=== PATIENT | male | born 1945 | race Caucasian/White ===

== ENCOUNTER 2024-11-21 14:07 | Inpatient (IN) | payer MEDICARE, BC, SELFPAY ==
[2024-11-21] VITALS (10 sets, daily range): BP systolic 106–140; BP diastolic 55–80; BMI 30.1
--- NOTE | 2024-11-21 10:19 | ED.GENMED ---
History of Present Illness
General
Chief Complaint: Fall
Time Seen by Provider: 11/21/24 09:29
History of Present Illness
History of Present Illness:
79-year-old male with history of A-fib on Eliquis, hypertension presenting after a fall. Patient reports that he rolled out of his bed onto his right side and fell to the ground. Denies prodromal dizziness or lightheadedness. Denies prodromal
chest pain or difficulty breathing. Reports some generalized pain to the right side of his body. Denies significant head injury, however does note some right-sided neck pain. Had difficulty getting up, so ambulance was called. Patient reports
that he does not have any help at home, ambulates with a cane at baseline. Reports some right-sided symptoms appear most consistent with musculoskeletal etiology. Do not suspect any concerning etiology to patient's presenting symptoms. Do not
suspect any spinal fracture in the absence of any direct trauma, and no midline spinal tenderness. No fever, systemic symptoms, or midline tenderness, without concern for spinal abscess or infection. No red flag such as bowel or bladder
incontinence, focal weakness, or any sensory deficits on exam, without present concern for spinal compression.. Denies numbness or tingling to his extremities. Denies any abdominal pain. Denies additional acute medical complaints.
Past History
Past History
ED Past Medical History: Arrthythmia (PVCs and ventricular arrhythmias), CAD, COPD, CVA, GERD, HTN, NC, Other (gout, urinary incontinence) and Other (sleep apnea, obesity, glaucoma, vitamin B12 deficiency)
ED Past Surgical History: Cardiac (coronary bypass grafting year 1999, drug-eluting stent 2009), Cholecystectomy, Orthopedic (bilateral knee replacements) and Tonsilectomy
Social History
Tobacco: Non-smoker
Alcohol: None
Personal:
Employment: Retired
Family History
Family History: CAD; Negative Diabetes or Hypertension
Phy Exam
Physical Exam
Physical Exam:
General: Well-appearing, no clinical signs of dehydration, nontoxic and in no acute distress
HEENT: protecting airway, no midline tenderness. Mild tenderness to the right lateral cervical musculature
Head: atraumatic
Neck: appears supple
CV: Normal heart rate, regular rhythm
Resp: No accessory muscle use, no increased work of breathing
Abd: Soft and non-distended, no tenderness to palpation
Extremities: No deformities, no swelling, no erythema. Mild generalized tenderness to the right thoracic back and right lumbar back. No midline tenderness.
Neuro: alert, no focal neurologic deficit
: deferred
Rectal: deferred
Psych: Normal affect
Skin: Intact
Course
Orders/Labs/Results
Orders:
Orders
11/21/24 10:12
Case Management Consult ONCE
Case Management Consult: Discharge Planning
11/21/24 10:13
CT Cervical Spine W/o Iv Contr Urgent
Comment:
Reason For Exam: fall, right sided pain
Acetaminophen [Tylenol] 1,000 mg PO NOW STA
Ribs, Right 3 View W/PA Chest [CR Ribs-right 3 Vw W/pa Chest*] Urgent
Comment:
Reason For Exam: fall
11/21/24 10:15
CT Head W/o Iv Contrast Urgent
Comment:
Reason For Exam: fall, on eliquis
11/21/24 11:11
CT Chest W/o Iv Contrast Urgent
Comment:
Reason For Exam: R-clavicle fx, small apical pneumo
11/21/24 11:27
Electrocardiogram (*1) Urgent
Reason for Study: Other
Other Reason for Exam: trauma
Cardiac Monitoring- Treatment ONCE
EKG- Treatment ONCE
11/21/24 11:29
Type+Screen Urgent
Complete Blood Count/With Diff Urgent
Comprehensive Metabolic Panel Urgent
NT-proBNP Urgent
Prothrombin Time Urgent
11/21/24 12:01
ABO2 Urgent
BBK Wristband Number:
Associate notified that ABO2 has been ordered: SHAUN
Date: 11/21/24
Time: 11:43
B And B Gang Worker ID: [id number]
11/21/24 12:41
Furosemide [Lasix] 40 mg IV NOW STA
11/21/24 13:22
Urinalysis Reflex To Culture Urgent
Date Specimen was Collected: 11/21/24
Time Specimen was Collected: 13:20
Urine Microscopic Reflex Cult Urgent
Urine Culture Urgent
CASSIUS Source: U
Specimen Description:
Date Specimen was Collected: 11/21/24
Time Specimen was Collected: 13:20
11/21/24 13:34
PULMONARY CONSULT Routine
Consulting Provider: Roland Arauz
Was physician already notified: Yes
Reason for consult: mod right plueral effusion, right pneumo 5-10%
11/21/24 13:36
Admit/Transfer Patient As Directed
Co-Sign Provider:
Level of Care: Inpatient admission
Assign to:: Telemetry
Physician / Group: flex mortensen
Diagnosis: mech fall R cavicle fx, acute chf, mod pleural effusion,pneumothorax
Reason for Telemetry: Acute Heart Failure
Date to Stop Telemetry: 11/24/24
Time to Stop Telemetry: 11:00
Reason for Hospitalization: mech fall R cavicle fx, acute chf, mod pleural effusion,pneumothorax
Expected length of stay greater than two midnights?: Yes
ELOS- Estimated Length of Stay in days: 4
I certify the patient meets the requirements for IP care: Yes
Code Status As Directed
Resuscitation Status: Full Code
11/21/24 13:41
PRN Pain Medication Management As Directed
May give lesser potent ordered pain med per pt: Yes
preference::
Protocol:: Medication orders for pain may be administered in a
manner that supports deferring to patient preference
when the pt is:
- Requesting an ordered lesser potent pain medication.
Least to most potent pain medications are defined
as: acetaminophen < NSAID < tramadol < opioids
(morphine, oxycodone, hydromorphone).
- Requesting a lesser dose of the same medication IF
ORDERED.
- Requesting a less intrusive route of administration
if both routes are prescribed by the provider (PO <
IV).
11/21/24 13:44
CARDIOLOGY CONSULT Routine
Consulting Provider: Kenneth Weeks
Was physician already notified: Yes
Reason for consult: chf
11/21/24 Dinner
Cholesterol Lowering
At Your Request: Full Participation
Does patient need a safe tray?: No
Cholesterol Lowering: Sodium, 2 Gram
11/21/24 15:24
Acetaminophen [Tylenol] 650 mg PO Q4HPRN PRN
11/21/24 15:24
VTE Contraindication Routine
VTE Mechanical Device Contraindication: Medical Contraindication
Pharmocologic Contraindication: Medical Contraindication
Comment: pt on eliquis
Activity As Directed
Activity Level: As Tolerated
Ice Application [Cold Application] As Directed
Location: right clavicle
Frequency: Intermittent q2h
Duration of Application: No longer than 20 minutes
Method of Delivery: Ice packs
Intake/ Output As Directed
Frequency: Per unit guidelines
Vital Signs As Directed
Frequency: Per unit guidelines
Weight As Directed
Frequency: Daily
O2 Therapy [RESP] Routine
Nasal Cannula Liter Flow: 2 LPM
Titrate/Wean O2 to maintain O2 sat greater than (%): 92
Pulse Ox/spot Check [RESP] Routine
Quantity: 1
Pt Eval And Treat Routine
Activity Level: With Assistance
11/21/24 20:00
Apixaban [Eliquis] 5 mg PO BID
Memantine HCl [Namenda] 5 mg PO BID
11/22/24 06:00
Echo 2D MMode Color/Doppler IN AM
Reason for Study: chf
Complete Blood Count/With Diff IN AM
Comprehensive Metabolic Panel IN AM
Chest [CR Chest - 2 Views ] IN AM
Comment:
Reason For Exam: pneumothorax eval
11/22/24 08:00
Amlodipine [Norvasc] 10 mg PO DAILY
Atenolol [Tenormin] 25 mg PO DAILY
Clopidogrel Bisulfate [Plavix] 75 mg PO DAILY
Cyanocobalamin [Vitamin B-12] 1,000 mcg PO DAILY
Furosemide [Lasix] 40 mg IV BID AT 0800,1600
11/23/24 06:00
Complete Blood Count/With Diff IN AM
Comprehensive Metabolic Panel IN AM
11/24/24 06:00
Complete Blood Count/With Diff IN AM
Comprehensive Metabolic Panel IN AM
11/24/24 11:00
DC Protocol for Telemetry ONCE
Abnormal Lab Results
11/21/24 11/21/24
11:29 13:22
Absolute Lymphs (auto) 0.9 L 10^3/uL
(1.2-3.4)
Absolute Monos (auto) 0.8 H 10^3/uL
(0.1-0.6)
Lymphocytes % 13.2 L %
(20.5-51.1)
Monocytes % 11.4 H %
(1.7-9.3)
PT 17.4 H Sec
(11.4-14.6)
Creatinine 0.6 L mg/dL
(0.7-1.3)
Glucose 112 H mg/dl
(70-99)
Total Bilirubin 2.1 H mg/dl
(0.2-1.3)
Alkaline Phosphatase 155 H U/L
(38-126)
Albumin 3.4 L g/dl
(3.5-5.0)
Ur Occult Blood Reflex 1+ A
(Negative)
Urine Nitrite (Reflex) Positive A
(Negative)
Urine Urobilinogen 2+ A
(Neg - 1+)
Leukocyte Esterase Rfl 3+ A
(Negative)
Urine RBC 3-6 A /HPF
(0-2)
Urine WBC (Reflex) 30-40 A /HPF
(0-5)
Urine Bacteria (Reflex) Many A
(Negative)
Urine Albumin (Reflex) 2+ A
(Neg - Trace)
11/21/24 11:29
11/21/24 11:29
Vital Signs
Initial and Last Documented VS:
Initial Vital Signs
BP Pulse Ox
115/57 92
11/21/24 09:19 11/21/24 09:19
Last Documented Vital Signs
Temp Pulse Resp BP Pulse Ox
98.6 F 68 25 113/69 94
11/21/24 09:23 11/21/24 15:00 11/21/24 15:00 11/21/24 15:00 11/21/24 15:00
MDM/Problems Addressed
MDM/Problems Addressed:
79-year-old male with history of A-fib on [facility] presenting after a fall out of bed. Vital signs on arrival are normal.
On exam, patient resting comfortably, no acute distress. No significant signs of trauma. Does note some mild right-sided lateral neck pain. Suspected cervical strain. Given anticoagulation, unwitnessed fall, will obtain CT brain and CT neck.
Patient's main complaints are right-sided back pain, thoracic and lumbar. No midline tenderness without concern for fracture or malalignment. Lungs are clear to auscultation, without concern for pneumothorax. Plan for rib series x-ray. Tylenol
administered for pain. Chronic swelling to the lower extremities without any deformity. No tenderness to the right hip. Small abrasion to the right shoulder, with no tenderness, range of motion intact. Patient notes mobility issues at baseline.
Given his pain, suspect issues with ambulation and disposition. Will consult with PT and case management
11:10 - Patient's CT of the neck does not show any cervical fracture, however does note a right mid clavicular fracture with subsequent small apical pneumothorax. Rib series x-ray is difficult to see extent of pneumo, appears small. Will proceed
with CT chest imaging. Patient placed on supplemental O2
12:30 -CT shows small apical pneumothorax without additional signs of trauma, with the exception of right clavicular fracture. No indication for chest tube, no hemodynamic instability. Additionally there is also bilateral pleural effusions.
Patient does have significant bilateral lower extremity edema, which she notes is chronic and is on a water pill. Suspect a component of acute on chronic CHF. Plan for admission.
*Pulse Oximetry
SaO2: 94
Oxygen Mode of Delivery: Room air
Patient hypoxic: no
*Critical Care Note
Total Time (30-74mins, 75-104mins- exclusive of procedures): Not Applicable
ED Attending Note
-
Portions of this chart may have been created with voice recognition software.� Occasional wrong word or��sound alike� substitutions may have occurred due to the inherent limitations of voice recognition software.
Discharge Plan
Departure
Patient Disposition: Admit
Date of Disposition: 11/21/24
Time of Disposition: 12:42
Presentation/result/management discussed w/ accepting MD/DO: Hospitalist
Patient with high blood pressure during this ER visit?: No
Condition: Fair
Discharge Problem:
Congestive heart failure (CHF), Closed fracture of right clavicle, Pneumothorax on right
Interventions
Interventions:
*Risk Screen - Suicide Last Done: 11/21/24 09:24
*General Assessment Last Done: 11/21/24 09:24
*Neglect/Abuse Screening Last Done: 11/21/24 09:31
*ED- Fall Risk Assessment Last Done: 11/21/24 09:30
*ED COVID-19 Vaccine History Last Done: 11/21/24 09:31
*Nursing Disposition Last Done: 11/21/24 15:27
ED-Musculoskeletal Assessment Last Done: 11/21/24 09:33
ED- Neurological Assessment Last Done: 11/21/24 09:33
ED-Skin Assessment Last Done: 11/21/24 11:08
Discharge Date and Time
Discharge Date/Time: 11/21/24 15:28
[2024-11-21] MEDS: TYLENOL 1000 MG PO (10:20)
--- NOTE | 2024-11-21 11:13 | CM ---
Case Management Consult cancelled; per ED Physician patient will transfer to [facility]uma [facility] for pneumothorax
[2024-11-21 11:48] LABS: Hematocrit 43.4 % (39.0-52.0); Hemoglobin 14.4 g/dL (13.0-18.0); Mean Corp Hgb Conc. 33.2 g/dL (33.0-37.0); Mean Corpuscular Volume 92.1 fL (80.0-94.0); Nucleated Red Blood Cells % 0 % (-); Platelet Count 148 10^3/uL (130-400); Red Cell Dist. Width 11.8 % (11.5-14.5)
[2024-11-21 11:54] LABS: INR 1.37; PT 17.4 Sec (11.4-14.6)
[2024-11-21 11:58] LABS: ALT (SGPT) 16 U/L (0-50); AST (SGOT) 24 U/L (17-59); Albumin 3.4 g/dl (3.5-5.0); Alkaline Phosphatase 155 U/L (38-126); Blood Urea Nitrogen 15 mg/dl (9-20); Calcium 10.0 mg/dl (8.4-10.2); Carbon Dioxide 28 mmol/L (22-30); Chloride 103 mmol/L (98-107); Estimated Creatinine Clearance 108 ml/min; Glucose 112 mg/dl (70-99); Potassium 3.6 mmol/L (3.5-5.1); Sodium 136 mmol/L (135-145); Total Protein 6.3 g/dl (6.3-8.2); eGFR > 60.00
[2024-11-21] MEDS: LASIX 40 MG IV (12:55)
--- NOTE | 2024-11-21 13:03 | HPS.HSE ---
Family Physician
-
Family Physician: Kuldip Liu MD
Chief Complaint
-
Fall right clavicular pain
History of Present Illness
79-year-old male who reportedly rolled out of his bed onto his right side fell to the ground and is complaining of right sided neck pain. He denies LOC. He reports he was up at 5 AM went to the bathroom took his a.m. medications then went back to
bed he then fell out later this morning. He has chronic lower extremity edema on exam for which he takes Lasix. He had a CT chest showing small apical pneumothorax and bilateral pleural effusions. Chest CT also showing right clavicular fracture
nondisplaced. The patient denies headache, dizziness fever, chills, chest pain, palpitations, cough, shortness breath, abdominal pain, nausea, vomiting, diarrhea, urinary symptoms.
Patient has past medical history of mild memory impairment, PVCs, A-fib new onset December 2022, CAD/GA, status post CABG 1999, drug-eluting stent 2009, COPD, CVA�pontine HTN, GERD, gout, urinary incontinence, sleep apnea, obesity, glaucoma,
vitamin B12 deficiency, memory impairment�mild, chronic peripheral edema
Medical History
Past Medical History
Past Medical History: Reports Other
Additional Past Medical History:
mild memory impairment
PVCs
A-fib new onset December 2022
CAD/GA, status post CABG 1999,
drug-eluting stent 2009
Chronic heart failure
COPD/asbestosis
CVA�pontine
HTN
GERD
gout
urinary incontinence
sleep apnea
Class I obesity
glaucoma,
vitamin B12 deficiency
chronic peripheral edema
Past Surgical History: Reports Other
Additional Past Surgical History:
CABG x 3 vessel 1999
Bilateral knee replacement 2011
Cholecystectomy
Tonsillectomy
Mohs skin cancer removal knee
Social History
Tobacco: Former Smoker (States smokes 16)
Alcohol: None
Drug: None
Personal: Single
Living: With Family (Lives with daughter)
Employment: Retired
Family History
Family History: Other (Sister history of breast cancer still living with mother history of unknown type of cancer , father history of alcohol abuse [place] age 85)
Allergies / Home Medications
Allergies reflects when Allergies were last updated in [employer].
Home Medications with original date entered in [employer]
Allergy/Medication List:
Allergies
Allergy/AdvReac Type Severity Reaction Status Date / Time
adhesive tape Allergy Rash Verified 01/26/22 11:48
meperidine (From Demerol) Allergy Hallucinati Verified 01/26/22 11:48
on
walnut Allergy Swelling Verified 01/26/22 11:48
Home Medications
amlodipine 10 mg tablet 10 mg PO DAILY #30 tabs 03/30/21
cyanocobalamin (vitamin B-12) 1,000 mcg tablet 1,000 mcg PO DAILY 03/30/21
atenolol 25 mg tablet 25 mg PO DAILY Heart Failure 01/18/22
evolocumab 140 mg/mL subcutaneous pen injector (Repatha SureClick) 140 mg SC Q2W High Cholesterol 12/16/22
apixaban 5 mg tablet (Eliquis) 5 mg PO BID #60 tabs 12/18/22
clopidogrel 75 mg tablet 75 mg PO DAILY 11/21/24
furosemide 40 mg tablet 40 mg PO DAILY 11/21/24
memantine 5 mg tablet 5 mg PO BID 11/21/24
potassium chloride 10 mEq capsule,extended release 10 meq PO DAILY 11/21/24
Review of Systems
-
History Source: Patient
A 12 point ROS was completed and negative except as noted: Yes
Constitutional: Denies Fever or Chills
EENT: Denies Sore Throat or Runny Nose
Respiratory: Reports Trouble Breathing; Denies Cough
Cardiac: Denies Chest Pain, Diaphoresis, Palpitations or Syncope
Abdomen/GI: Denies Abdominal Pain, Nausea, Vomiting, Diarrhea, Constipated, Bloody Stools or Black Stools
: Denies Dysuria, Frequency, Flank Pain, Incontinence or Difficulty Voiding
Musculoskeletal: Reports Edema (Chronic +2 nonpitting soft bilateral legs); Denies Joint Pain
Skin: Reports Other (Tenderness right clavicle with limited range of motion due to clavicular fracture); Denies Itching or Rash
Neurological: Denies Dizzy or Headache
Endocrine: Reports No Symptoms
Hematologic/Lymphatic: Reports No Symptoms
Psych: Reports Calm
Physical Exam
Vital Signs
Vital Signs
Temp Pulse Resp BP Pulse Ox
98.6 F 77 19 119/76 95
11/21/24 09:23 11/21/24 12:55 11/21/24 12:00 11/21/24 12:55 11/21/24 12:00
Physical Exam
General: No Pain, Fever or Chills
HEENT: NormoCephalic, Anicteric, Moist mucous membranes, Atraumatic, PERRLA, [place] Conjunctivae, No Ptosis and Oxygen (2 L nasal cannula)
Respiratory: Other (Diminished breath sounds right lung,Tenderness right clavicle with limited range of motion due to clavicular fracture); No Wheezes or Rales
Cardiac: S1/S2, Regular Rhythm and Peripheral Edema
Breast: Deferred by me
GI: Soft, Non Tender, Non Distended, Normal Bowel Sounds and No Hepatosplenomegaly
Rectal: Deferred by Provider
Genito-urinary: Deferred by me
Musculoskeletal: No Clubbing and No Cyanosis; No Edema, Left Upper Extremity or Edema, Right Upper Extremity
Skin: Warm and Dry; No Rash or Jaundice
Neuro: AO x 3 (Slight forgetfulness due to memory impairment), Nonfocal/grossly intact, Cranial Nerves Intact, No Sensory Deficits and Other (Limited range of motion right arm due to clavicular fracture); No Slurred Speech, Facial Droop, Tremors or
Sedated
Psych: Calm
Laboratory Results
-
11/21/24 11:29
11/21/24 11:29
Laboratory Results
PT 17.4 Sec (11.4-14.6) H 11/21/24 11:29
INR 1.37 11/21/24 11:29
Total Bilirubin 2.1 mg/dl (0.2-1.3) H 11/21/24 11:29
AST 24 U/L (17-59) 11/21/24 11:29
ALT 16 U/L (0-50) 11/21/24 11:29
Alkaline Phosphatase 155 U/L (38-126) H 11/21/24 11:29
Impression/Plan
-
Impression/plan:
Admit to TELE
#Mechanical fall with neck strain/RIGHT medial clavicular fracture nondisplaced
- Tylenol as needed
- Sling, ice
- PT consult
#Moderate right-sided pleural effusion/small�moderate left pleural effusion secondary to ACUTE on CHRONIC CHF
#Chronic peripheral edema
92% RA, 95% 2 L nasal cannula
BNP 2019
- IV Lasix 40 mg given in ER continue ,IV Lasix 40 mg twice daily starting tomorrow
-If no improvement would consider IR for Thora
- Consult [facility]ology
#Small right-sided pneumothorax 5 to 10% -no shift
- Will monitor patient
- Maintain O2 support
- Check CXR in a.m.
- Consult home
#Memory impairment
�mil continue Namenda 5 mg twice daily
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
History of 9 mm left pontine infarct, chronic diminished flow V3 V4 segments distal left vertebral artery December 2022
-No symptoms currently
-Continue Plavix , Eliquis last dose was this morning 11/21/2024 at 5:30 AM
-
#New onset A-fib
History PVCs
- Follows with [facility]ology
-Continue atenolol 25 mg daily, Eliquis 5 mg twice daily
2D echo 01/25/2024: EF 55-60%, mildly dilated moderate hypokinetic right ventricle, mild RV S pressure 41 mmHg, moderate biatrial enlargement
#HTN�benign
Continue amlodipine 10 mg daily
#CAD status post CABG
-On aspirin and Plavix, atenolol 25 mg daily
#History of PVCs
#Essential hypertension
-Continue amlodipine, atenolol
#Hyperlipidemia
- Patient on Repatha 140 mg SQ every 2 weeks
#COPD�no acute exacerbation
- Patient denies history of smoking other than his teen
#GERD
- No reported meds
Gout
- No reported meds
Sleep apnea
Class I obesity�BMI 30
Glaucoma
- No reported eyedrops
B12 deficiency
-Continue B12
Anxiety/depression
- No meds listed
Osteoarthritis
DVT prophylaxis
Continue Eliquis
Full code
--- NOTE | 2024-11-21 13:25 | W.PN.UPDATE ---
Update Note
Progress Note Update
This is an addendum to H&P written by STOCK FITTER Iram Zuñiga
I saw and examined the patient.
The STOCK FITTER's note was reviewed and I agree with the note.
Comment:
Mr. Gibson Horton is a 79 yo man with hx atrial fibrillation, TIA, essential HTN, HLD, COPD, PENNIE, GERD, obesity presents after falling out of bed this morning onto his right side.
Triage VS: T 98.6, P 76, BP 115/57, SpO2 92%
On exam patient is mildly tachypneic, conversant. JVP seen; 2 + pitting edema b/l LE
LABS: WBC 6.7, Hg 14.1, PLT 148, Na 136, K+ 3.6, Cr 0.6, Glucose 112, T. Bili 2.1, AST 24, ALT 16, Alk Phos 155, BNP [address]
IMPRESSION: There is no evidence for acute fracture or dislocation involving the cervical spine.
There is suggestion of a small nondisplaced fracture involving the medial right clavicle.
Small right apical pneumothorax is present. There is also suggestion of right pleural effusion posteriorly within the visualized upper chest.
Ribs with Chest X-Ray
IMPRESSION: There is a small right apical pneumothorax, estimated volume 5-10%. No evidence for mediastinal shift.
Subtle deformity of the right anterolateral seventh rib, appearance most suggestive of old fracture, but acute fracture also possible. No radiographic evidence for acute posterior rib fracture.
Cardiomegaly with small bilateral pleural effusions. Suggestion of increased interstitial markings, best seen on the radiographs, suggestive of mild interstitial edema pattern.
HEAD CT
IMPRESSION:
No evidence of acute intracranial abnormality.
CHEST CT
IMPRESSION:
Small right-sided pneumothorax, estimated volume of 5-10%. No evidence for mediastinal shift.
Moderate right pleural effusion with small to moderate left pleural effusion. Adjacent compressive atelectasis within the posterior lungs.
Cardiomegaly. On CT evaluation, no convincing evidence for interstitial pulmonary edema pattern.
Fracture involving the medial right clavicle, nondisplaced. There is no evidence for sternoclavicular joint dislocation.
Cystic mass within the left upper abdomen, inferior to the spleen and at the posterior margin of the left kidney. This is likely a large left kidney cyst, with a large left kidney cyst identified on previous renal ultrasound of September 16, 2021. This
presumed the left kidney cyst is incompletely included on the [id number] of this exam.
Not mentioned above, there is also an incompletely visualized cyst arising in the upper pole of the right kidney.
Heart Failure preserved EF, Acute Exacerbation
Moderate Right pleural effusion
-admit to telemetry
-Lasix 40mg IV x 1 now, continue BID starting tomorrow
-strict I/O, daily weights
-TTE
-Cardiology consult
-monitor pleural effusion with CXR, consider thoracentesis if does not improve with diuresis
Small right apical pneumothorax, 5-10%
-continuous oxygen
-repeat CXR tomorrow AM
-Pulmonary consult
Medial right clavicular fracture, nondisplaced
-will order sling, patient should wear while healing for 6 weeks
-outpatient follow up
-PT/OT
Essential HTN
-SALES OFFICE ADMINISTRATOR Amlodipine
Hx Atrial Fibrillation
-continue SALES OFFICE ADMINISTRATOR Atenolol
-SALES OFFICE ADMINISTRATOR Eliquis
Hx CVA
-SALES OFFICE ADMINISTRATOR Plavix
Hx CAD s/p CABG 1999, PCI 2009
-SALES OFFICE ADMINISTRATOR Plavix
DVT PPx SALES OFFICE ADMINISTRATOR Eliquis
FULL CODE
76 minutes spent on patient care
[2024-11-21 13:48] LABS: Urine Character Slightly Cloudy (Clear)
[2024-11-21 15:10] LABS: Urine Squamous Cell 16-20 /LPF (Few)
[2024-11-21 15:12] LABS: Urine White Cell 30-40 /HPF (0-5)
--- NOTE | 2024-11-21 15:40 | PTCARENOTE ---
Received pt from ED via stretcher. Pt pulled over to bed with assist x3. AAOx3, forgetful. pt c/o right sided rib pain, able to tolerate. auto bumper mechanic placed. Assessed and oriented to room. Pt verbalized understanding of call elena. Call elena
within close reach. Will cont to monitor.
--- NOTE | 2024-11-21 15:56 | CON.CAR ---
Addendum entered and electronically signed by Kenneth Weeks DO 11/21/24 20:47:
I saw and examined the patient.
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
Comment:
Plan:
HPI: Patient presented with fall out of bed and found to have a right clavicle fracture as well as right apical pneumothorax and bilateral pleural effusions, pBNP elevated at 2019.
IV lasix diuresis
Consider thoracentesis pending pleural fluid repsonse to diuresis
Management of small right apical pneumothorax per primary service, repeat chest x-ray in a.m. for reassessment
-Pain management of right clavicle fracture
Check echo to reeval EF
Wean supplemental oxygen as able
Wt is down from May 2024
Defer workup to primary service
Not felt to be candidate for SGLT2 inhibitor given issues with urinary incontinence
Remains rate controlled AFib on Atenolol, Eliquis
May consider stopping Plavix as last stent 2009
He is considering pursuing alternative living arrangements at time of d/c
Original Note:
Consultation
Consultation Request
Date/Time Consultation Performed: 11/21/24
Requesting Provider: Dr. Schultz
Performing Provider: Reena Yuan PA-C for Dr. Weeks
Reason for Consultation: CHF
Medical History
-
Chief Complaint: fall
History of Present Illness:
Patient is an 79-year-old male with past medical history of CAD status post CABG 1999, RON to unknown vessel 2009, hypertension, hyperlipidemia, chronic heart failure with preserved EF, persistent atrial fibrillation on chronic Eliquis,
anxiety/depression, PENNIE on CPAP, history of statin intolerance maintained on chronic Repatha, CVA 05/2019, suspected prior asbestos exposure who presents to [facility] for evaluation after a fall at home. He reports he fell out of his bed
this morning, and could not get up. He lives with his sister, but she did not witness the fall. 911 was called and he was brought to the emergency room. He was found to have evidence of a right clavicle fracture with a small right apical
pneumothorax and bilateral pleural effusions. proBNP elevated at 1999. Cardiology consulted for assistance with heart failure management. Patient reports dry weight of 210 pounds, however was listed as 250 pounds at office visit 06/01/2024. He is
maintained chronically on Lasix 40 mg daily.
PMH:
Chronic heart failure with preserved EF
Persistent atrial fibrillation
Chronic anticoagulation with Eliquis
History of CVA 05/2019
CAD status post CABG 1999 at [facility], RON to unknown vessel 2009
Hypertension
Hyperlipidemia
Anxiety/depression
PENNIE on CPAP
History of statin intolerance maintained on chronic Repatha
Suspected prior asbestos exposure
Urinary incontinence, history of TURP 2021
Bilateral knee replacements
Past Medical History
Past Medical History: Other (in HPI)
Social History
Tobacco: Non-Smoker
Living: With Family (sister)
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
Allergies / Home Medications
Allergy/AdvReac Type Severity Reaction Status Date / Time
adhesive tape Allergy Rash Verified 01/26/22 11:48
meperidine (From Demerol) Allergy Hallucinati Verified 01/26/22 11:48
on
walnut Allergy Swelling Verified 01/26/22 11:48
�Medication �Instructions �Recorded �Confirmed �Type
amlodipine 10 mg tablet 10 mg PO DAILY #30 tabs 03/30/21 11/21/24 Rx
cyanocobalamin (vitamin B-12) 1,000 mcg PO DAILY 03/30/21 11/21/24 Rx
1,000 mcg tablet
atenolol 25 mg tablet 25 mg PO DAILY Heart Failure 01/18/22 11/21/24 History
evolocumab 140 mg/mL subcutaneous 140 mg SC Q2W High Cholesterol 12/16/22 11/21/24 History
pen injector (Repatha SureClick)
apixaban 5 mg tablet (Eliquis) 5 mg PO BID #60 tabs 12/18/22 11/21/24 Rx
clopidogrel 75 mg tablet 75 mg PO DAILY 11/21/24 11/21/24 History
furosemide 40 mg tablet 40 mg PO DAILY 11/21/24 11/21/24 History
memantine 5 mg tablet 5 mg PO BID 11/21/24 11/21/24 History
potassium chloride 10 mEq 10 meq PO DAILY 11/21/24 11/21/24 History
capsule,extended release
Review of Systems
-
History Source: Patient
All other systems: Negative unless noted
Physical Exam
Vital Signs
Temp Pulse Resp BP Pulse Ox
98.6 F 68 25 113/69 94
11/21/24 09:23 11/21/24 15:00 11/21/24 15:00 11/21/24 15:00 11/21/24 15:00
Lab Results
11/21/24 11:29
11/21/24 11:29
Cpa-D-Kulsbhlntqa Pept 2020 pg/ml 11/21/24 11:29
Physical Exam
General: No Apparent Distress, Comfortable and Other (on supp O2)
HEENT: Normocephalic, Anicteric and Moist Mucous Membranes
Respiratory: Other (decreased BS B/L bases)
Cardiac: S1/S2 and Irregular Rhythm
GI: Soft, Non Tender, Non Distended and Normal Bowel Sounds
Musculoskeletal: No Clubbing, No Cyanosis and Edema (trace of B/L LE)
Skin: Warm and Dry
Neuro: AO x 3
Impression / Plan
-
Primary Doughnut Icer Machine: Dr. Maynard
Assessment:
Presentation with fall
R clavicle fracture
R apical PTX
B/L pleural effusions
Suspected acute on chronic HFpEF
Persistent atrial fibrillation
Chronic anticoagulation with Eliquis
History of CVA 2022
CAD status post CABG 1999 at [facility], RON to unknown vessel 2009
Hypertension
Hyperlipidemia
Anxiety/depression
PENNIE on CPAP
History of statin intolerance maintained on chronic Repatha
Suspected prior asbestos exposure
Urinary incontinence, history of TURP 2021
Bilateral knee replacements
Memory impairment, on memantine
ECHO 01/25/24: EF 55 to 60%, RV mildly dilated and moderately hypokinetic, mild increase in RV systolic pressure 41 mmHg, moderate biatrial enlargement
Plan:
- Patient presented with fall out of bed and found to have a right clavicle fracture as well as right apical pneumothorax and bilateral pleural effusions
- proBNP elevated at 2020. Will diurese with IV Lasix, is on 40 mg p.o. daily as an outpatient. If not improving, would consider for thoracentesis to further evaluate pleural fluid
- Management of small right apical pneumothorax per primary service, will need repeat chest x-ray in a.m. for reassessment
- Pain management of right clavicle fracture
- Last echo from 01/2024, will repeat
-Wean supplemental oxygen as able
- By comparison of weight of 250 pounds in office 06/01/2024, weight if accurate today now 203 pounds. Defer workup to primary service
- Not felt to be candidate for SGLT2 inhibitor given issues with urinary incontinence
- EKG with rate controlled atrial fibrillation. Continue outpatient atenolol, Eliquis
- Also on Plavix. Last noted stent was in 2009
- Continue outpatient amlodipine
Data Reviewed
-
EKG: Tracing Personally Visualized and interpreted
Radiology: Report Reviewed by me
Medical Tests (Nuc Med, Echo etc): Report Reviewed by me
Labs: Labs Reviewed by me
Old Records: Reviewed
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
--- NOTE | 2024-11-21 18:15 | PTCARENOTE ---
Information in regards to patient complaint provided to [facility].
[2024-11-21] MEDS: DESENEX/MITRAZOL/ZEASORB 1 APPLIC TOPICAL (19:38)
[2024-11-21] MEDS: NAMENDA 5 MG PO (19:38)
[2024-11-21] MEDS: ELIQUIS 5 MG PO (19:39)
[2024-11-22 02:41] VITALS: BP 107/72
[2024-11-22 06:00] VITALS: BMI 30.8
--- NOTE | 2024-11-22 07:42 | W.PN.HOSP.TC ---
Today's Communication/Plan
-
Follow-up echo and CXR
Follow-up s/p IR right thoracentesis
Assessment / Plan
Assessment / Plan
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
and chronic peripheral edema on Lasix who presented to the ED on 11/21 after a fall. In the ED, cervical spine CT, chest CT, ribs with CXR altogether revealed right medial clavicle fracture with a small right apical pneumothorax and bilateral
pleural effusions. Labs significant for proBNP 1999. Cardiology was consulted and Gibson was admitted to telemetry for further management of his fracture and heart failure.
CT brain: No evidence of acute intracranial abnormality.
CT C-spine: No evidence for acute fracture or dislocation involving the cervical spine. There is suggestion of a small nondisplaced fracture involving the medial right clavicle. Small right apical pneumothorax is present. There is also suggestion of
right pleural effusion posteriorly within the visualized upper chest.
CT chest: Small R-sided PTX, estimated volume of 5-10%. No evidence for mediastinal shift. Moderate right pleural effusion with small to moderate left pleural effusion. Adjacent compressive atelectasis within the posterior lungs. Cardiomegaly. On CT
evaluation, no convincing evidence for interstitial pulmonary edema pattern. Fracture involving the medial right clavicle, nondisplaced. There is no evidence for sternoclavicular joint dislocation. Cystic mass within the left upper abdomen, inferior
to the spleen and at the posterior margin of the left kidney. This is likely a large left kidney cyst, with a large left kidney cyst identified on previous renal ultrasound of September 16, 2021. This presumed the left kidney cyst is incompletely
included on the aljyk-ww-gaae of this exam. Not mentioned above, there is also an incompletely visualized cyst arising in the upper pole of the right kidney.
#Mechanical fall
#Right medial clavicular fracture, nondisplaced
#Small right-sided pneumothorax
#Bilateral pleural effusions
- Pulm consulted, appreciate recs:
--C/F hemothorax as he is on Eliquis
--Recommending IR right thoracentesis to rule out hemothorax and avoid fibrothorax
--Consulted IR for thoracentesis. Patient will get this 11/22 afternoon.
- Follow-up repeat chest x-ray
- Tylenol as needed
- Sling, ice, lidocaine patches, wean oxygen as tolerated
- PT/OT consulted
#HFpEF, possible acute exacerbation
- Cardiology consulted, appreciate recs:
--Continue diuresis with IV Lasix: If patient is not improving, would consider thoracentesis for evaluation of pleural fluid
--Last echo 01/2024, follow-up repeat echo
--Follow-up repeat chest x-ray 11/22
--Not an SGLT2 inhibitor candidate ISO urinary incontinence
--Weight is down from 2024, rec to primary service for further workup
--Wean oxygen as tolerated
- S/p Lasix 40 mg IV x 1 in ED: Continue IV Lasix 40 mg twice daily at 8 AM, 4 PM
#History of memory impairment
- Continue home memantine 5 mg p.o. twice daily
#Pontine CVA
Occurred in December 2022, 9 mm left pontine infarct, chronic diminished flow V3 V4 segments distal left vertebral artery.
- Continue clopidogrel 75 mg and apixaban 5 mg p.o. twice daily
#A-fib
#CAD s/p CABG
- Follows with [facility] cardiology
- Continue atenolol 25 mg daily and Eliquis 5 mg twice daily
- Follow-up repeat echo
#Essential hypertension
- Continue amlodipine 10 mg daily
Hyperlipidemia
- Continue Repatha 140 mg every 2 weeks
DVT prophylaxis: Eliquis
CODE STATUS: Full code
Anticipated Discharge: 24 - 48 hours (Pending clinical improvement and workup)
Subjective/Interval History
-
Date of Service: November 22, 2024
-This morning, he is sitting up in bed with NC (no oxygen at home). He does not complain of shortness of breath but does complain of ongoing right-sided pain especially where the impact of his fall was. He states he does not want to try stronger
medications and would just like to stick with Tylenol and lidocaine patches.
-He also mentions a complex social situation at home. He lives with his sister, and states that her house is about to be foreclosed. He is wondering what options he has for once he is ready to go home.
-He is going to get a thoracentesis in the afternoon with IR today.
Objective Data
-
Labs:
Laboratory Results
11/22/24
07:32
WBC Pending
Hgb Pending
Hct Pending
Plt Count Pending
Sodium Pending
Potassium Pending
Chloride Pending
Carbon Dioxide Pending
BUN Pending
Creatinine Pending
Glucose Pending
Calcium Pending
Total Bilirubin Pending
AST Pending
ALT Pending
Alkaline Phosphatase Pending
Vital Signs:
Vital Signs
Temp Pulse Resp BP Pulse Ox
98.6 F 86 20 107/72 93
11/22/24 02:41 11/22/24 02:41 11/22/24 02:41 11/22/24 02:41 11/22/24 02:41
I&O
11/21/24 11/22/24 11/23/24
06:59 06:59 06:59
Intake Total 1080 / 1080
Output Total 1275 / 1275
Balance -195 / -195
Review of Systems
-
History Source: Patient
All other systems: Reviewed and negative
Musculoskeletal: Reports Joint Pain and Edema (Chronic bilateral lower extremities)
Physical Exam
-
General: Well Developed, Well Nourished, No Apparent Distress, Pain (Generalized pain especially on the right side s/p fall) and Conversant
HEENT: Normocephalic, Atraumatic, Moist Mucous Membranes and Other (Endorsing neck pain)
Respiratory: Clear to Auscultation and Non Labored Respirations
GI: Soft, Nondistended and Tender (Slightly tender to palpation on the right side)
Musculoskeletal: No Clubbing, No Cyanosis and No Edema
Skin: Warm and Dry
Neuro: AO x 3
Psych: Calm and Intact Judgement/Insight
[2024-11-22 07:50] VITALS: BP 151/98
[2024-11-22 08:13] LABS: Hematocrit 44.4 % (39.0-52.0); Hemoglobin 14.7 g/dL (13.0-18.0); Mean Corp Hgb Conc. 33.1 g/dL (33.0-37.0); Mean Corpuscular Volume 92.5 fL (80.0-94.0); Nucleated Red Blood Cells % 0 % (-); Platelet Count 142 10^3/uL (130-400); Red Cell Dist. Width 11.9 % (11.5-14.5)
--- NOTE | 2024-11-22 08:13 | W.PN.UPDATE ---
Update Note
Progress Note Update
I saw and evaluated the patient. I reviewed the resident�s note and agree with findings and plan as documented in the resident�s note.
Gen: NAD, AAOx3.
Eyes: EOMI, PERRLA, no scleral icterus.
Neck: supple.
CV: irreg/irreg, +S1/S2, no m/r/g.
Resp: Dec BS in the bases, no rales, wheezes, or rhonchi.
Abd: +BS, soft, NT, ND
Skin: No rashes.
Neuro: CN 2-12 intact, non-focal.
Psych: Normal mood and affect.
CT brain: No evidence of acute intracranial abnormality.
CT C-spine: No evidence for acute fracture or dislocation involving the cervical spine. There is suggestion of a small nondisplaced fracture involving the medial right clavicle. Small right apical pneumothorax is present. There is also suggestion of
right pleural effusion posteriorly within the visualized upper chest.
CT chest: Small R-sided PTX, estimated volume of 5-10%. No evidence for mediastinal shift. Moderate right pleural effusion with small to moderate left pleural effusion. Adjacent compressive atelectasis within the posterior lungs. Cardiomegaly. On CT
evaluation, no convincing evidence for interstitial pulmonary edema pattern. Fracture involving the medial right clavicle, nondisplaced. There is no evidence for sternoclavicular joint dislocation. Cystic mass within the left upper abdomen, inferior
to the spleen and at the posterior margin of the left kidney. This is likely a large left kidney cyst, with a large left kidney cyst identified on previous renal ultrasound of September 16, 2021. This presumed the left kidney cyst is incompletely
included on the tzdrd-tt-rldi of this exam. Not mentioned above, there is also an incompletely visualized cyst arising in the upper pole of the right kidney.
Acute on chronic HFpEF:
-with B/L pleural effusions
-proBNP 2019
-cont IV lasix, daily wts, I/Os
-cont BB
-c/s cards
Small R-sided PTX:
-5 to 10%, no mediastinal shift
-cont NC O2
-check CXR
-c/s pulm
Small nondisplaced fracture involving the medial right clavicle:
-due to mechanical fall (traumatic)
-RUE sling
-PT
-pain control
Persistent atrial fibrillation:
-cont BB/Eliquis
-c/s cards
Other problems:
h/o CVA: Cont ASA/statin/Eliquis
Memory impairment: cont Namenda
CAD s/p CABG: cont ASA/Plavix/BB
h/o PVCs
Essential HTN: cont amlodipine/atenolol
HLD: on Repatha outpt Q2Wk
COPD, not acute exacerbation
GERD
Gout
PENNIE
Obesity due to excess calories
Glaucoma
B12 deficiency: cont B12
Anxiety/depression
Osteoarthritis
FULL/Eliquis
Total time spent on today's encounter was 50 minutes which included time spent in counseling the patient/family regarding diagnosis and treatment plan as listed above, goals of care, and symptom management. Case was discussed with nursing staff,
specialists, and care coordinators/case management. All labs and imaging personally reviewed by me. Remainder the time spent in detailed review of previous records, lab data, imaging, and other medical provider documentation.
[2024-11-22] MEDS: NORVASC 10 MG PO (08:26)
[2024-11-22] MEDS: ELIQUIS 5 MG PO ×2 (08:26→20:09)
[2024-11-22] MEDS: PLAVIX 75 MG PO (08:27)
[2024-11-22] MEDS: NAMENDA 5 MG PO ×2 (08:27→20:09)
[2024-11-22] MEDS: TENORMIN 25 MG PO (08:27)
[2024-11-22] MEDS: VITAMIN B-12 1000 MCG PO (08:27)
[2024-11-22] MEDS: DESENEX/MITRAZOL/ZEASORB 1 APPLIC TOPICAL ×2 (08:28→20:10)
[2024-11-22] MEDS: LASIX 40 MG IV ×2 (08:28→15:33)
[2024-11-22 08:46] LABS: ALT (SGPT) 15 U/L (0-50); AST (SGOT) 24 U/L (17-59); Albumin 3.3 g/dl (3.5-5.0); Alkaline Phosphatase 145 U/L (38-126); Blood Urea Nitrogen 12 mg/dl (9-20); Calcium 9.8 mg/dl (8.4-10.2); Carbon Dioxide 28 mmol/L (22-30); Chloride 105 mmol/L (98-107); Estimated Creatinine Clearance 110 ml/min; Glucose 101 mg/dl (70-99); Magnesium 1.7 mg/dl (1.6-2.3); Potassium 3.8 mmol/L (3.5-5.1); Sodium 137 mmol/L (135-145); Total Protein 6.4 g/dl (6.3-8.2); eGFR > 60.00
--- NOTE | 2024-11-22 10:18 | CON.PUL ---
Consultation
Consultation Request
Date/Time Consultation Requested: 11/22/2024-8 AM
Date/Time Consultation Performed: 11/22/2024-8:30 AM
Requesting Provider: hospitalist
Performing Provider: Dr. Arauz
Reason for Consultation: Shortness of breath/pleural effusion/pneumothorax
Medical History
-
Chief Complaint: Shortness of breath
History of Present Illness:
79-year-old never smoking male with history of atrial fibrillation on Eliquis, CAD, asbestosis, hypertension, GERD, sleep apnea who rolled out of bed to his right side and presented with right-sided chest and neck pain found to have 5 to 10%
pneumothorax and bilateral right greater than left pleural effusion as well as a nondisplaced right clavicular fracture-pulmonary consulted for pleural effusion, pneumothorax 11/22/2024. Patient states that he continues to have some right sided
chest pain as well as some neck pain but does not complain of shortness of breath, pleurisy, chest congestion, productive cough, abdominal pain, nausea, leg swelling or focal weakness.
Past Medical History
Past Medical History: None (CAD/IN/stents 2009/CABG 1999. Atrial fibrillation on Eliquis. Mild memory impairment. Chronic heart failure preserved EF. Asbestos related lung disease. CVA-pontine. Hypertension. GERD. Gout. PENNIE. Obesity.
Glaucoma.)
Past Surgical History: None (CABG times 06/1999. Bilateral knee replacement 2011. Cholecystectomy. Tonsillectomy. Mohs surgery.)
Social History
Tobacco: Non-smoker
Alcohol: None
Drug: None
Living: With Family
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
Environmental Exposures: No known tuberculosis exposure
Family History
Family History: Reviewed & Not Pertinent (Sister breast cancer. Father alcohol abuse.)
Allergies / Home Medications
Allergies
Allergy/AdvReac Type Severity Reaction Status Date / Time
adhesive tape Allergy Rash Verified 01/26/22 11:48
meperidine (From Demerol) Allergy Hallucinati Verified 01/26/22 11:48
on
walnut Allergy Swelling Verified 01/26/22 11:48
Home Medications
�Medication �Instructions �Recorded �Confirmed �Last Taken �Type
amlodipine 10 mg tablet 10 mg PO DAILY #30 tabs 03/30/21 11/21/24 11/21/24 Rx
cyanocobalamin (vitamin B-12) 1,000 mcg PO DAILY 03/30/21 11/21/24 11/21/24 Rx
1,000 mcg tablet
atenolol 25 mg tablet 25 mg PO DAILY Heart Failure 01/18/22 11/21/24 11/21/24 History
evolocumab 140 mg/mL subcutaneous 140 mg SC Q2W High Cholesterol 12/16/22 11/21/24 12/07/22 History
pen injector (Dean Schwartz)
apixaban 5 mg tablet (Eliquis) 5 mg PO BID #60 tabs 12/18/22 11/21/24 11/21/24 Rx
clopidogrel 75 mg tablet 75 mg PO DAILY 11/21/24 11/21/24 11/21/24 History
furosemide 40 mg tablet 40 mg PO DAILY 11/21/24 11/21/24 11/21/24 History
memantine 5 mg tablet 5 mg PO BID 11/21/24 11/21/24 11/21/24 History
potassium chloride 10 mEq 10 meq PO DAILY 11/21/24 11/21/24 Unknown History
capsule,extended release
Review of Systems
-
Unable to Obtain full review of systems at this time due to: Other (Per HPI)
Vitals / Labs / Diagnostic Testing
Vital Signs
Temp Pulse Resp BP Pulse Ox
97.8 F 91 17 151/98 94
11/22/24 07:50 11/22/24 08:26 11/22/24 07:50 11/22/24 08:26 11/22/24 07:50
Lab Data
11/22/24 07:32
11/22/24 07:32
Laboratory Results
11/21/24
11:29
PT 17.4 H
INR 1.37
Diagnostic Testing:
Physical Exam
-
Exam:
Well-nourished and well-developed in no apparent distress
HEENT-atraumatic, normocephalic
Neck-supple, no JVD, no bruit
Heart-regular rate and rhythm-no murmurs, rubs or gallops
Chest with diminished breath sounds right greater than left base with rare crackles and no wheezes
Back without tenderness
Abdomen-soft, nontender, nondistended, no hepatosplenomegaly
Extremities-no cyanosis, clubbing, edema and good peripheral pulses
Integument-intact, no rashes, lesions or ecchymosis
Neurology-alert and oriented, nonfocal motor and sensory exam
Assessment
-
79-year-old never smoking male with history of atrial fibrillation on Eliquis, CAD, asbestosis, hypertension, GERD, sleep apnea who rolled out of bed to his right side and presented with right-sided chest and neck pain found to have 5 to 10%
pneumothorax and bilateral right greater than left pleural effusion as well as a nondisplaced right clavicular fracture-pulmonary consulted for pleural effusion, pneumothorax 11/22/2024.
Mechanical fall with neck strain and right clavicular nondisplaced displaced fracture
Moderate right and small left pleural effusion and patient with history of acute on top of chronic heart failure preserved EF
Pneumothorax secondary to trauma-right side 5-10%
Conditions present prior to admission:
CAD/IN/stents 2009/CABG 1999.
Atrial fibrillation on Eliquis.
Mild memory impairment.
Chronic heart failure preserved EF.
Asbestos related lung disease.
CVA-pontine.
Hypertension.
GERD.
Gout.
PENNIE.
Obesity.
Glaucoma.
CABG times 06/1999. Bilateral knee replacement 2011. Cholecystectomy. Tonsillectomy. Mohs surgery.
Plan
Pneumothorax related to mechanical fall-very small and normally would not recommend chest tube and only observational approach with probable slow self reabsorption-follow radiographically
Moderate right and small left pleural effusion was also noted-patient on Eliquis and with traumatic fall, possible rib fracture the possibility of a hemothorax does exist
Recommend interventional radiology right thoracentesis to rule out hemothorax and evacuate majority of fluid as if hemothorax that is not adequately drained could lead to fibrothorax-Dr. Arauz consulted Dr. Webber on 11/22/2024
Subsequent oxygen as needed
Nebulizers if needed-currently not bronchospastic
Aspiration precautions
Cardiology following-correspondence reviewed
Repeat echocardiogram pending
Diuresis as tolerated
Monitor renal function, electrolytes, intake/output, lower extremity edema and weight
Replace electrolytes as needed
Eliquis reintroduction per cardiology
DVT prophylaxis-on Lovenox
Nutrition
Early mobilization
The patient poorly has obstructive sleep apnea on CPAP-does not follow in our practice-Will offer follow-up locally if he wishes
Diagnostic data:
Chest x-ray 11/22/[id number] modify cardiomegaly, small effusion and component of CHF, no enlarging pneumothorax
Rib x-ray 11/21/2024-small right apical pneumothorax, no evidence for mediastinal shift, subtle deformity right anterior seventh rib suggestive of an old fracture, mild interstitial edema
CT spine 11/21/2024-no evidence for acute fracture or dislocation involving the cervical spine, suggestion of a small nondisplaced fracture involving medial right clavicle and small right apical pneumothorax
CT chest 11/21/2024-small 5-10% right-sided pneumothorax, no evidence for mediastinal shift, moderate right and small left pleural effusion, cystic mass within the left upper abdomen likely large left renal cyst
CT head 11/21/2024-no evidence for acute intracranial abnormalities
Data Reviewed
-
EKG: Report reviewed by me
Radiology: Image personally visualized and interpreted and Report reviewed by me
CT Scan: Image personally visualized and interpreted and Report reviewed by me
Medical Tests (Nuc Med, Echo etc): Report reviewed by me
Labs: Labs reviewed by me
Old Records: Reviewed
Total Time Spent with Patient (in minutes): 65
[2024-11-22 10:48] VITALS: BP 121/66
[2024-11-22] MEDS: TYLENOL 650 MG PO (12:03)
--- NOTE | 2024-11-22 14:31 | W.PN.CARDCBS ---
Addendum entered and electronically signed by Chauncey Lee MD 11/22/24 15:34:
I saw and examined the patient.
The Director Outcomes's note was reviewed and I agree with the note.
Comment:
GEN: No distress, awake, Ox3
HEENT: supple, anicteric, mmm
LUNGS: CTA, no wheezes/rales
CV: irreg, S1/S2, 1/6 syst LSB, S3+
ABD: soft, BS+, NT/ND
EXT: No edema
NEURO: Gross non-focal
SKIN: No rash
Plan:
Check Echo today. Agree with Plan to consider thoracentesis.
Cont Lasix 40mg IV bid
Cont Atenolol, Eliquis for Afib.
Creat 0.5, K 3.8
Cont Med Rx for CAD.
Original Note:
Today's Communication / Plan
-
IRAD consult for thoracentesis
continue IV lasix
wean supp O2 as able
replete K/mag
echo pending
Impression / Plan
-
Primary Table Assembler: Dr. Maynard
Assessment:
Presentation with fall
R clavicle fracture
R apical PTX
B/L pleural effusions
Suspected acute on chronic HFpEF
Persistent atrial fibrillation
Chronic anticoagulation with Eliquis
History of CVA 2019, 2022
CAD status post CABG 1999 at [facility], RON to unknown vessel 2009
Hypertension
Hyperlipidemia
Anxiety/depression
PENNIE on CPAP
History of statin intolerance maintained on chronic Repatha
Suspected prior asbestos exposure
Urinary incontinence, history of TURP 2021
Bilateral knee replacements
Memory impairment, on memantine
ECHO 01/25/24: EF 55 to 60%, RV mildly dilated and moderately hypokinetic, mild increase in RV systolic pressure 41 mmHg, moderate biatrial enlargement
ECHO 11/22/24: pending
Plan:
- Patient presented with fall out of bed and found to have a right clavicle fracture as well as right apical pneumothorax and bilateral pleural effusions. pulm following. plan for conservative mgmt of PTX. CXR 11/22 pending. IRAD has been consulted
for thoracentesis to ensure not hemothorax
- proBNP elevated at 2019. continue IV lasix, is on 40 mg p.o. daily as an outpatient.
- Pain management of right clavicle fracture
- Last echo from 01/2024, repeat pending
- Wean supplemental oxygen as able
- By comparison of weight of 250 pounds in office 06/01/2024, weight if accurate today now 208 pounds. Defer workup to primary service
- Not felt to be candidate for SGLT2 inhibitor given issues with urinary incontinence
- in rate controlled afib with PVCs, couplets, triplets. replete K/mag. Continue outpatient atenolol, Eliquis
- Also on Plavix. Last noted stent was in 2009
- Continue outpatient amlodipine
Progress Note - Table Assembler
Subjective
Date of Service: November 22, 2024
c/o R sided pain
Objective
Labs:
11/22/24 07:32
11/22/24 07:32
Labs
Hgb 14.7 g/dL (13.0-18.0) 11/22/24 07:32
Hct 44.4 % (39.0-52.0) 11/22/24 07:32
Plt Count 142 10^3/uL (130-400) 11/22/24 07:32
PT 17.4 Sec (11.4-14.6) H 11/21/24 11:29
INR 1.37 11/21/24 11:29
Sodium 137 mmol/L (135-145) 11/22/24 07:32
Potassium 3.8 mmol/L (3.5-5.1) 11/22/24 07:32
BUN 12 mg/dl (9-20) 11/22/24 07:32
Creatinine 0.5 mg/dL (0.7-1.3) L 11/22/24 07:32
Glucose 101 mg/dl (70-99) H 11/22/24 07:32
Vital Signs and I&O:
Vital Signs
Temp Pulse Resp BP Pulse Ox
97.9 F 70 17 121/66 94
11/22/24 10:48 11/22/24 10:48 11/22/24 10:48 11/22/24 10:48 11/22/24 10:48
Vital Signs
Temp Pulse Resp BP Pulse Ox
97.9 F 70 17 121/66 94
11/22/24 10:48 11/22/24 10:48 11/22/24 10:48 11/22/24 10:48 11/22/24 10:48
Intake & Output
11/20/24 11/21/24 11/22/24 11/23/24
07:59 07:59 07:59 07:59
Intake Total 1080 / 1080
Output Total 1275 / 1275
Balance -195 / -195
[2024-11-22] MEDS: KCL 40 MEQ PO (14:54)
[2024-11-22] MEDS: MAGNESIUM SULFATE 50 IV (14:54)
[2024-11-22 14:56] VITALS: BP 115/61
--- NOTE | 2024-11-22 15:40 | CM ---
Patient seen at bedside along with [facility] ([phone])
she states she did a property search where the patient lives with his sister is in foreclosure
patient states his brother is in process of looking at apartments
concern was called to protective services as patient states his sister would not turn on air conditioner when it was 100 degrees outside.
He states today his 'sister would take his mail and only let him see what she wanted him to see'
Patient has been living with his sister for 4 years since his CVA
Patient reports he and his brother a few weeks ago went to [place] and new POA in place which is his brother Aba Garay
[employer] contact was updated to reflect this. CM requested that a copy be brought in to hospital so it can be scanned in chart. He states he will tell his brother.
IA completed - was living with sister in 2 story home, 1 [address], flight to bed/bath
PLOF: Independent with cane, walker used outside home
DME: Walker, cane, CPAP
Has had [facility] in past, and denies SNF
PT rec SNF
List given to patient - CM to follow up with referrals to be entered
patient for thoracentesis tomorrow
PCP: Kuldip Liu MD
Pharmacy: [address], [place]
PLAN: SNF, pending bed availability, when stable
[2024-11-22 19:00] VITALS: BP 122/53
[2024-11-22 23:03] VITALS: BP 134/76
[2024-11-23] VITALS (11 sets, daily range): BP systolic 70–145; BP diastolic 63–77; PULSE 75; O2SAT 97; BMI 30.5
[2024-11-23] MEDS: DESENEX/MITRAZOL/ZEASORB 1 APPLIC TOPICAL ×2 (07:30→20:03)
[2024-11-23] MEDS: NAMENDA 5 MG PO ×2 (07:30→20:07)
[2024-11-23] MEDS: NORVASC 10 MG PO (07:31)
[2024-11-23] MEDS: VITAMIN B-12 1000 MCG PO (07:31)
[2024-11-23] MEDS: LASIX 40 MG IV ×2 (07:31→16:01)
[2024-11-23] MEDS: TENORMIN 25 MG PO (07:31)
[2024-11-23] MEDS: ELIQUIS 5 MG PO ×2 (07:31→20:07)
[2024-11-23] MEDS: PLAVIX 75 MG PO (07:31)
[2024-11-23 07:54] LABS: Hematocrit 44.3 % (39.0-52.0); Hemoglobin 15.0 g/dL (13.0-18.0); Mean Corp Hgb Conc. 33.9 g/dL (33.0-37.0); Mean Corpuscular Volume 91.2 fL (80.0-94.0); Nucleated Red Blood Cells % 0 % (-); Platelet Count 141 10^3/uL (130-400); Red Cell Dist. Width 12.1 % (11.5-14.5)
[2024-11-23 08:26] LABS: ALT (SGPT) 14 U/L (0-50); AST (SGOT) 22 U/L (17-59); Albumin 3.3 g/dl (3.5-5.0); Alkaline Phosphatase 139 U/L (38-126); Blood Urea Nitrogen 17 mg/dl (9-20); Calcium 10.4 mg/dl (8.4-10.2); Carbon Dioxide 26 mmol/L (22-30); Chloride 105 mmol/L (98-107); Estimated Creatinine Clearance 109 ml/min; Glucose 97 mg/dl (70-99); Magnesium 2.1 mg/dl (1.6-2.3); Potassium 4.0 mmol/L (3.5-5.1); Sodium 137 mmol/L (135-145); Total Protein 6.4 g/dl (6.3-8.2); eGFR > 60.00
--- NOTE | 2024-11-23 08:32 | W.PN.UPDATE ---
Addendum entered and electronically signed by Bradford Beck MD 11/23/24 11:19:
Stage 1 sacrum pressure injury, POA
Original Note:
Update Note
Progress Note Update
I saw and evaluated the patient. I reviewed the resident�s note and agree with findings and plan as documented in the resident�s note.
Denies chest pain or shortness of breath.
Gen: NAD, Awake and alert
Eyes: EOMI, PERRLA, no scleral icterus.
Neck: supple.
CV: remains irreg/irreg, +S1/S2, no m/r/g.
Resp: CTAB anteriorly, no rales, wheezes, or rhonchi.
Abd: +BS, soft, NT, ND
Skin: No rashes. 3+ B/L LE edema
Neuro: CN 2-12 intact, non-focal.
Psych: Normal mood and affect.
CT brain: No evidence of acute intracranial abnormality.
CT C-spine: No evidence for acute fracture or dislocation involving the cervical spine. There is suggestion of a small nondisplaced fracture involving the medial right clavicle. Small right apical pneumothorax is present. There is also suggestion of
right pleural effusion posteriorly within the visualized upper chest.
CT chest: Small R-sided PTX, estimated volume of 5-10%. No evidence for mediastinal shift. Moderate right pleural effusion with small to moderate left pleural effusion. Adjacent compressive atelectasis within the posterior lungs. Cardiomegaly. On CT
evaluation, no convincing evidence for interstitial pulmonary edema pattern. Fracture involving the medial right clavicle, nondisplaced. There is no evidence for sternoclavicular joint dislocation. Cystic mass within the left upper abdomen, inferior
to the spleen and at the posterior margin of the left kidney. This is likely a large left kidney cyst, with a large left kidney cyst identified on previous renal ultrasound of September 16, 2021. This presumed the left kidney cyst is incompletely
included on the [id number] of this exam. Not mentioned above, there is also an incompletely visualized cyst arising in the upper pole of the right kidney.
CXR 11/22/24: Moderate right and small left pleural effusions. Stable. Opacification of the right lower lobe concerning for pneumonia. Some of this may be due a layering pleural effusion. New. Moderate cardiomegaly. Progressed.
CXR 11/23/24: No pneumothorax post right thoracentesis.
Acute on chronic HFpEF:
-with B/L pleural effusions
-proBNP 2019
-cont IV lasix, daily wts, I/Os
-cont BB
-check echo
-s/p Dx/Tx R thoracentesis for 1550cc peng-colored fluid, pH 7.51, protein and LDH pending, likely transudative
-cards following
Small R-sided PTX:
-5 to 10%, no mediastinal shift
-repeat CXR without mention of PTX
-wean O2 as able
-pulm following
Small nondisplaced fracture involving the medial right clavicle:
-due to mechanical fall (traumatic)
-RUE sling
-PT
-pain control
Other problems:
Persistent atrial fibrillation: cont BB/Eliquis
h/o CVA: Cont ASA/statin/Eliquis
Memory impairment: cont Namenda
CAD s/p CABG: cont ASA/Plavix/BB
h/o PVCs
Essential HTN: cont amlodipine/atenolol
HLD: on Repatha outpt Q2Wk
COPD, not acute exacerbation
GERD
Gout
PENNIE
Obesity due to excess calories
Glaucoma
B12 deficiency: cont B12
Anxiety/depression
Osteoarthritis
FULL/Eliquis
--- NOTE | 2024-11-23 09:40 | PN.CDI ---
CDI
- -
CDI:
Physician Documentation Request
Admit Date: 11/21/24 14:07
Dear Doctor,
Please review the following and provide your response in the progress notes.
Clinical Indicators:
- RN skin assessments indicates Stage 1 sacrum pressure injury, POA
Physician documentation of the type and location of wounds is required for compliant documentation. Based on the above clinical findings and your assessment, please provide the following in your progress note:
1. Location of the ulcer/wound, including laterality.
2. Type (etiology) of ulcer/wound:
- Diabetic ulcer
- Arterial (ischemic) ulcer
- Traumatic wound
- Pressure (decubitus) ulcer
- Other
Use of terms such as suspected, likely, concern for, or probable (associated with a specific diagnosis that is being evaluated, monitored, or treated as if it exists) are acceptable and can be coded in the inpatient setting, when documented at the
time of discharge.
Thank you,
Sanjana Chiu RN
CDI Specialist
Please use your independent medical judgment in providing your response.
*Source: National Pressure Ulcer Advisory Panel (NPUAP)
[2024-11-23 10:03] LABS: Body Fluid Second Tech EM
--- NOTE | 2024-11-23 10:07 | W.PN.CARDCBS ---
Addendum entered and electronically signed by Chauncey Lee MD 11/23/24 12:00:
I saw and examined the patient.
The Vaccine Customer Representative's note was reviewed and I agree with the note.
Comment:
GEN: No distress, awake, Ox3
HEENT: supple, anicteric, mmm
LUNGS: scatt rhonchi
CV: Reg, S1/S2, 1/6 syst LSB, S3+
ABD: soft, BS+, NT/ND
EXT: trace edema
NEURO: Gross non-focal
SKIN: No rash
Plan:
Overall doing better. Had 1.5 L removed via thoracentesis on right side. ? Transudative
Will continue IV Lasix for another 24 hours. Can likely switch to oral diuretics in AM. Would discharge on Lasix 40 mg p.o. twice daily
Check echocardiogram today
Continue atenolol and Eliquis. Remains in rate controlled A-fib
Blood pressure is overall stable.
Continue medical therapy for CAD
Original Note:
Today's Communication / Plan
-
Ongoing IV diuresis
Echo today
Status post right thoracentesis today with repeat chest x-ray not showing pneumothorax
Impression / Plan
-
Primary House Player: Dr. Maynard
Assessment:
Presentation 11/21/2024 with fall
R clavicle fracture
R apical PTX
B/L pleural effusions
s/p R thoracentesis for 1550cc peng-colored fluid,
Suspected acute on chronic HFpEF
Persistent atrial fibrillation
Chronic anticoagulation with Eliquis
History of CVA 2022
CAD status post CABG 1999 at [facility], RON to unknown vessel 2009
Hypertension
Hyperlipidemia
Anxiety/depression
PENNIE on CPAP
History of statin intolerance maintained on chronic Repatha
Suspected prior asbestos exposure
Urinary incontinence, history of TURP 2021
Bilateral knee replacements
Memory impairment, on memantine
ECHO 01/25/24: EF 55 to 60%, RV mildly dilated and moderately hypokinetic, mild increase in RV systolic pressure 41 mmHg, moderate biatrial enlargement
ECHO 11/22/24: ordered/Pending
Plan:
- Patient presented 11/2024 with fall out of bed and found to have a right clavicle fracture as well as right apical pneumothorax and bilateral pleural effusions. pulm following. plan for conservative mgmt of
- s/p R thoracentesis for 1550cc peng-colored fluid on 11/23. Repeat x-ray after thoracentesis did not mention pneumothorax
- proBNP elevated at 2019. Still appears to have evidence of volume overload continue with ongoing diuresis with IV Lasix. Weight down 2 pounds overnight. Patient was on 40 mg p.o. daily as an outpatient.
- Pain management of right clavicle fracture
- Echo this admission pending
- Wean supplemental oxygen as able
- By comparison of weight of 250 pounds in office 06/01/2024, weight if accurate today now 206 pounds. Defer workup to primary service
- Not felt to be candidate for SGLT2 inhibitor given issues with urinary incontinence
- in rate controlled afib with PVCs, couplets, triplets. K and mag stable. Keep K greater than 4, mag greater than 2. Could consider increased atenolol to 37.5 mg daily given ventricular ectopy. Continue Eliquis
- Continue outpatient amlodipine
Progress Note - House Player
Subjective
Date of Service: November 23, 2024
Patient seen and examined post thoracentesis. Reports breathing is better. Still has some lower extremity edema and evidence of volume overload and requiring oxygen
Objective
Labs:
11/23/24 06:50
11/23/24 06:50
Labs
Hgb 15.0 g/dL (13.0-18.0) 11/23/24 06:50
Hct 44.3 % (39.0-52.0) 11/23/24 06:50
Plt Count 141 10^3/uL (130-400) 11/23/24 06:50
PT 17.4 Sec (11.4-14.6) H 11/21/24 11:29
INR 1.37 11/21/24 11:29
Sodium 137 mmol/L (135-145) 11/23/24 06:50
Potassium 4.0 mmol/L (3.5-5.1) 11/23/24 06:50
BUN 17 mg/dl (9-20) 11/23/24 06:50
Creatinine 0.6 mg/dL (0.7-1.3) L 11/23/24 06:50
Glucose 97 mg/dl (70-99) 11/23/24 06:50
Vital Signs and I&O:
Vital Signs
Temp Pulse Resp BP Pulse Ox
98.1 F 70 15 116/ 96
11/23/24 08:25 11/23/24 09:43 11/23/24 09:43 11/23/24 09:43 11/23/24 09:10
Vital Signs
Temp Pulse Resp BP Pulse Ox
98.1 F 70 15 116 96
11/23/24 08:25 11/23/24 09:43 11/23/24 09:43 11/23/24 09:43 11/23/24 09:10
Intake & Output
11/21/24 11/22/24 11/23/24 11/24/24
06:59 06:59 06:59 06:59
Intake Total 1080 / 1080 810 / 810
Output Total 1275 / 1275 1350 / 1350
Balance -195 / -195 -540 / -540
Physical Exam
Physical Exam
GEN: No distress, awake, Ox3, sitting in bed wearing oxygen
HEENT: supple, anicteric, mmm
LUNGS: Mildly decreased at left base otherwise CTA, no wheezes/rales, still wearing oxygen
CV: Irregularly irregular, S1/S2, no murmur, rub or gallop
ABD: soft, BS+, NT/ND
EXT: +2 lower extremity edema no clubbing or cyanosis; right arm in sling
NEURO: Gross non-focal
SKIN: No rash, warm, dry, pink
--- NOTE | 2024-11-23 10:26 | W.PN.HOSP.TC ---
Today's Communication/Plan
-
S/p IR thoracentesis: Follow-up studies
Continue IV Lasix twice daily
Appreciate hadoop consultant recs
Assessment / Plan
Assessment / Plan
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
and chronic peripheral edema on Lasix who presented to the ED on 11/21 after a fall. In the ED, cervical spine CT, chest CT, ribs with CXR altogether revealed right medial clavicle fracture with a small right apical pneumothorax and bilateral
pleural effusions s/p IR thoracentesis 11/23. Labs significant for proBNP 1999. Cardiology was consulted and Gibson was admitted to telemetry for further management of his fracture and heart failure.
CT brain: No evidence of acute intracranial abnormality.
CT C-spine: No evidence for acute fracture or dislocation involving the cervical spine. There is suggestion of a small nondisplaced fracture involving the medial right clavicle. Small right apical pneumothorax is present. There is also suggestion of
right pleural effusion posteriorly within the visualized upper chest.
CT chest: Small R-sided PTX, estimated volume of 5-10%. No evidence for mediastinal shift. Moderate right pleural effusion with small to moderate left pleural effusion. Adjacent compressive atelectasis within the posterior lungs. Cardiomegaly. On CT
evaluation, no convincing evidence for interstitial pulmonary edema pattern. Fracture involving the medial right clavicle, nondisplaced. There is no evidence for sternoclavicular joint dislocation. Cystic mass within the left upper abdomen, inferior
to the spleen and at the posterior margin of the left kidney. This is likely a large left kidney cyst, with a large left kidney cyst identified on previous renal ultrasound of September 16, 2021. This presumed the left kidney cyst is incompletely
included on the [id number] of this exam. Not mentioned above, there is also an incompletely visualized cyst arising in the upper pole of the right kidney.
CXR 11/22/24: Moderate right and small left pleural effusions. Stable. Opacification of the right lower lobe concerning for pneumonia. Some of this may be due a layering pleural effusion. New. Moderate cardiomegaly. Progressed.
CXR 11/23/24: No pneumothorax post right thoracentesis.
#Mechanical fall
#Right medial clavicular fracture, nondisplaced
#Small right-sided pneumothorax
#Bilateral pleural effusions s/p IR thoracentesis 11/23
- Pulm consulted, appreciate recs:
--C/F hemothorax as he is on Eliquis
--Rec IR right thoracentesis to rule out hemothorax and avoid fibrothorax
- S/p Dx/Tx right thoracentesis for 1.5 L peng-colored fluid: Follow-up studies
- Tylenol as needed
- Sling, ice, lidocaine patches, wean oxygen as tolerated
- PT/OT consulted
#HFpEF, acute on chronic
- Cardiology consulted, appreciate recs:
--Continue diuresis with IV Lasix: If patient is not improving, would consider thoracentesis for evaluation of pleural fluid
--Last echo 01/2024, follow-up repeat echo
--Not an SGLT2 inhibitor candidate ISO urinary incontinence
--Weight is down from 2024, rec to primary service for further workup
--Wean oxygen as tolerated
- S/p Lasix 40 mg IV x 1 in ED: Continue IV Lasix 40 mg twice daily at 8 AM, 4 PM
#History of memory impairment
- Continue home memantine 5 mg p.o. twice daily
#Pontine CVA
Occurred in December 2022, 9 mm left pontine infarct, chronic diminished flow V3 V4 segments distal left vertebral artery.
- Continue clopidogrel 75 mg and apixaban 5 mg p.o. twice daily
#A-fib
#CAD s/p CABG
- Follows with [facility] cardiology
- Continue atenolol 25 mg daily and Eliquis 5 mg twice daily
- Follow-up repeat echo
#Essential hypertension
- Continue amlodipine 10 mg daily
Hyperlipidemia
- Continue Repatha 140 mg every 2 weeks
DVT prophylaxis: Eliquis
CODE STATUS: Full code
Anticipated Discharge: 24 - 48 hours
Subjective/Interval History
-
Date of Service: November 23, 2024
- S/p Thora this am. Does not endorse any difference in pain.
Objective Data
-
Labs:
Laboratory Results
11/23/24
06:50
WBC 8.0
Hgb 15.0
Hct 44.3
Plt Count 141
Sodium 137
Potassium 4.0
Chloride 105
Carbon Dioxide 26
BUN 17
Creatinine 0.6 L
Glucose 97
Calcium 10.4 H
Total Bilirubin 3.1 H
AST 22
ALT 14
Alkaline Phosphatase 139 H
Vital Signs:
Vital Signs
Temp Pulse Resp BP Pulse Ox
98.1 F 70 15 116/67 96
11/23/24 08:25 11/23/24 09:43 11/23/24 09:43 11/23/24 09:43 11/23/24 09:10
I&O
11/22/24 11/23/24 11/24/24
06:59 06:59 06:59
Intake Total 1080 / 1080 810 / 810
Output Total 1275 / 1275 1350 / 1350
Balance -195 / -195 -540 / -540
Review of Systems
-
History Source: Patient
All other systems: Reviewed and negative
Physical Exam
-
General: Well Developed, Well Nourished, No Apparent Distress, Comfortable, Conversant and Other
HEENT: Normocephalic, Atraumatic and Moist Mucous Membranes
Respiratory: Clear to Auscultation, Non Labored Respirations and Other (S/p thoracentesis 11/23)
Cardiac: Regular Rhythm and S1/S2
GI: Soft, Nontender and Nondistended
Musculoskeletal: No Clubbing, No Cyanosis and No Edema
Skin: Warm and Dry
Neuro: AO x 3
Psych: Calm and Intact Judgement/Insight
--- NOTE | 2024-11-23 10:33 | W.PN.PUL.V3 ---
Today's Communication / Plan
-
.
Thoracentesis noted-hemoglobin and hematocrit pending-does not appear to be hemothorax.
Cardiology following-diuresis as tolerated.
No obvious pneumothorax on chest [id number] will sign off-. Please call with questions
Assessment
-
79-year-old never smoking male with history of atrial fibrillation on Eliquis, CAD, asbestosis, hypertension, GERD, sleep apnea who rolled out of bed to his right side and presented with right-sided chest and neck pain found to have 5 to 10%
pneumothorax and bilateral right greater than left pleural effusion as well as a nondisplaced right clavicular fracture-pulmonary consulted for pleural effusion, pneumothorax 11/22/2024.
Mechanical fall with neck strain and right clavicular nondisplaced displaced fracture
Moderate right and small left pleural effusion and patient with history of acute on top of chronic heart failure preserved EF
Status post right thoracentesis 11/23/24--1550-transudate, cultures and cytology pending
Pneumothorax secondary to trauma-right side 5-10%..
Conditions present prior to admission:
CAD/[place]/stents 2009/CABG 1999.
Atrial fibrillation on Eliquis.
Mild memory impairment.
Chronic heart failure preserved EF.
Asbestos related lung disease.
CVA-pontine.
Hypertension.
GERD.
Gout.
PENNIE.
Obesity.
Glaucoma.
CABG times 06/1999. Bilateral knee replacement 2011. Cholecystectomy. Tonsillectomy. Mohs surgery.
Plan
Pneumothorax related to mechanical fall-very small and normally would not recommend chest tube and only observational approach with probable slow self reabsorption-follow radiographically
Moderate right and small left pleural effusion was also noted-patient on Eliquis and with traumatic fall, possible rib fracture the possibility of a hemothorax does exist
Recommend interventional radiology right thoracentesis to rule out hemothorax and evacuate majority of fluid as if hemothorax that is not adequately drained could lead to fibrothorax-Dr. Arauz consulted Dr. Webber on 11/22/2024-Performed
11/23/24--1550 mL-probable transudate/borderline exudate, cultures and cytology pending
Subsequent oxygen as needed
Nebulizers if needed-currently not bronchospastic
Aspiration precautions.
Chest x-ray 11/23/24-no pneumothorax
Cardiology following-correspondence reviewed
Repeat echocardiogram pending
Diuresis as tolerated
Monitor renal function, electrolytes, intake/output, lower extremity edema and weight
Replace electrolytes as needed
Eliquis reintroduction per cardiology
DVT prophylaxis-on Lovenox
Nutrition
Early mobilization.
Patient status post thoracentesis-no obvious pneumothorax-cardiology following with echocardiogram and diuresis-pulmonary will sign off-. Please call with questions
The patient has obstructive sleep apnea on CPAP-does not follow in our practice-Will offer follow-up locally if he wishes
Diagnostic data:
Chest x-ray 11/22/[id number] modify cardiomegaly, small effusion and component of CHF, no enlarging pneumothorax
Rib x-ray 11/21/2024-small right apical pneumothorax, no evidence for mediastinal shift, subtle deformity right anterior seventh rib suggestive of an old fracture, mild interstitial edema
CT spine 11/21/2024-no evidence for acute fracture or dislocation involving the cervical spine, suggestion of a small nondisplaced fracture involving medial right clavicle and small right apical pneumothorax
CT chest 11/21/2024-small 5-10% right-sided pneumothorax, no evidence for mediastinal shift, moderate right and small left pleural effusion, cystic mass within the left upper abdomen likely large left renal cyst
CT head 11/21/2024-no evidence for acute intracranial abnormalities
Subjective Data
-
Date of Service:
Date of Service: November 23, 2024
Chief Complaint: Pulmonary Follow Up and Dyspnea Follow Up
Subjective:
No respiratory distress
Review of Systems
General: Other ( per HPI)
Objective Data
Data Reviewed
Vital Signs / I&O:
Vital Signs
Temp Pulse Resp BP Pulse Ox
98.1 F 70 15 116/67 96
11/23/24 08:25 11/23/24 09:43 11/23/24 09:43 11/23/24 09:43 11/23/24 09:10
Intake and Output
11/22/24 11/23/24 11/24/24
06:59 06:59 06:59
Intake Total 1080 / 1080 810 / 810
Output Total 1275 / 1275 1350 / 1350
Balance -195 / -195 -540 / -540
SaO2: 96
Nasal Cannula flow liters per minute: 2
Physical Exam
General: Respiratory Distress (n) and Comfortable
HEENT: Normocephalic, Anicteric and Moist Mucous Membranes
Cardiovascular: Regular Rhythm and Murmur
Respiratory: Crackles (Basilar), Non-Labored Respirations, Accessory Resp Muscle Use (n) and Stridor
GI: Soft, Non Distended and Non Tender
Neurology: Awake, Alert and No Motor Deficits
Skin: Warm, Good Color, Cyanosis (n), Jaundice (n) and Rash (n)
Labs/Micro/Reports
Lab Data
11/23/24 06:50
11/23/24 06:50
Microbiology
11/21/24 13:22 Urine Urine Culture - Final
Escherichia coli
[2024-11-24] MEDS: TYLENOL 650 MG PO ×3 (03:25→23:21)
[2024-11-24 06:00] VITALS: BMI 29.7
--- NOTE | 2024-11-24 07:21 | W.PN.HOSP.TC ---
Today's Communication/Plan
-
see a/p
Assessment / Plan
Assessment / Plan
Assessment/plan
#Nondisplaced right medial clavicular fracture secondary to mechanical fall
-Cervical spine CT�there is a suggestion of small nondisplaced fracture involving the medial right clavicle
-CR ribs�no radiographic evidence for acute posterior rib fracture. Although subtotal deformity of the right anterolateral seventh rib, appearance most suggestive of an old fracture, but acute fracture is also possible.
-Head CT negative
-Right upper extremity sling
-PT
-Pain control
#Acute on chronic HFpEF
#Bilateral pleural effusion s/p right thoracocentesis 11/23
-CXR�moderate right and small left pleural effusions
-proBNP 2019 on presentation
-Cardiology input appreciated
-s/p IV Lasix 40 mg BID, transitioned to PO 40mg Lasix daily today
-I's and O's, daily weights
-Pleural fluid s/p right thoracocentesis 1550 cc analysis indicative of transudative pleural effusion
-Echocardiogram 11/23�normal left ventricular size, wall thickness and systolic function. No regional wall abnormalities are seen. Ejection fraction is 50-55% by visual assessment
-Per cards, not a candidate for SGLT2 given issues with urinary continence
#Acute hypoxic respiratory sufficiency secondary to below
#Pneumothorax secondary to trauma�right side 5-10%
-CT chest 11/21 indicative of small right-sided pneumothorax, estimated volume of 5-10%
-CXR 11/23/2024�no pneumothorax, 11/22�no pneumothorax,
-Wean O2 as tolerated
-Pulmonology signed off as s/p thoracocentesis imaging showed no obvious pneumothorax
#Persistent atrial fibrillation
-Continue rate control with atenolol
-Anticoagulation with Eliquis
#History of CVA
-Continue Plavix
#CAD s/p CABG 1999, stents 2009
-Denies acute chest pain
-Continue Plavix
#Memory impairment
-Continue memantine
#COPD
-Not in acute exacerbation
#Essential hypertension
-Continue amlodipine, atenolol
#Hyperlipidemia
-on Repatha
#GERD
#Gout
#Obstructive sleep apnea not on CPAP
#Glaucoma
#B12 deficiency-continue B12 supplementation
#Anxiety/depression
#Stage I sacral pressure injury POA
CODE STATUS full code
DVT prophylaxis Eliquis
Anticipated Discharge: 24 - 48 hours
Subjective/Interval History
-
Patient seen and examined at bedside. Denies acute complaints. Weaned off O2
Objective Data
-
Labs:
Laboratory Results
11/24/24
07:08
WBC Pending
Hgb Pending
Hct Pending
Plt Count Pending
Sodium Pending
Potassium Pending
Chloride Pending
Carbon Dioxide Pending
BUN Pending
Creatinine Pending
Glucose Pending
Calcium Pending
Total Bilirubin Pending
AST Pending
ALT Pending
Alkaline Phosphatase Pending
Vital Signs:
Vital Signs
Temp Pulse Resp BP Pulse Ox
97.7 F 72 18 133/77 98
11/23/24 23:00 11/23/24 23:00 11/23/24 23:00 11/23/24 23:00 11/23/24 23:00
I&O
11/23/24 11/24/24 11/25/24
06:59 06:59 06:59
Intake Total 810 / 810 1170 / 1170
Output Total 1350 / 1350 2024
Balance -540 / -540 -855 / -855
Review of Systems
-
All other systems: Reviewed and negative (Except as documented)
Physical Exam
-
General: Well Developed and No Apparent Distress
Respiratory: Clear to Auscultation
Cardiac: Regular Rhythm and S1/S2
GI: Soft, Nontender and Nondistended
Musculoskeletal: No Edema
Skin: Warm and Dry
Neuro: Awake, Alert, Oriented and AO x 3
Psych: Calm
[2024-11-24 07:49] VITALS: BP 122/73
[2024-11-24 07:58] LABS: Hematocrit 43.0 % (39.0-52.0); Hemoglobin 14.5 g/dL (13.0-18.0); Mean Corp Hgb Conc. 33.7 g/dL (33.0-37.0); Mean Corpuscular Volume 90.7 fL (80.0-94.0); Nucleated Red Blood Cells % 0 % (-); Platelet Count 145 10^3/uL (130-400); Red Cell Dist. Width 12.0 % (11.5-14.5)
--- NOTE | 2024-11-24 07:59 | W.PN.UPDATE ---
Update Note
Progress Note Update
I saw and evaluated the patient. I reviewed the resident�s note and agree with findings and plan as documented in the resident�s note.
Denies chest pain or shortness of breath.
Gen: remains NAD, Awake and alert
Eyes: EOMI, PERRLA, no scleral icterus.
Neck: supple.
CV: continues to remain irreg/irreg, +S1/S2, no m/r/g.
Resp: CTAB anteriorly, no rales, wheezes, or rhonchi.
Abd: +BS, soft, NT, ND
Skin: No rashes. 1-2+ B/L LE edema
Neuro: CN 2-12 intact, non-focal.
Psych: Normal mood and affect.
CT brain: No evidence of acute intracranial abnormality.
CT C-spine: No evidence for acute fracture or dislocation involving the cervical spine. There is suggestion of a small nondisplaced fracture involving the medial right clavicle. Small right apical pneumothorax is present. There is also suggestion of
right pleural effusion posteriorly within the visualized upper chest.
CT chest: Small R-sided PTX, estimated volume of 5-10%. No evidence for mediastinal shift. Moderate right pleural effusion with small to moderate left pleural effusion. Adjacent compressive atelectasis within the posterior lungs. Cardiomegaly. On CT
evaluation, no convincing evidence for interstitial pulmonary edema pattern. Fracture involving the medial right clavicle, nondisplaced. There is no evidence for sternoclavicular joint dislocation. Cystic mass within the left upper abdomen, inferior
to the spleen and at the posterior margin of the left kidney. This is likely a large left kidney cyst, with a large left kidney cyst identified on previous renal ultrasound of September 16, 2021. This presumed the left kidney cyst is incompletely
included on the [id number] of this exam. Not mentioned above, there is also an incompletely visualized cyst arising in the upper pole of the right kidney.
CXR 11/22/24: Moderate right and small left pleural effusions. Stable. Opacification of the right lower lobe concerning for pneumonia. Some of this may be due a layering pleural effusion. New. Moderate cardiomegaly. Progressed.
CXR 11/23/24: No pneumothorax post right thoracentesis.
Echo:
1. Normal left ventricular size, wall thickness and systolic function. No regional wall motion abnormalities are seen.
2. Ejection fraction is 50-55% by visual assessment.
3. Right ventricular cavity size cavity is mildly dilated.
4. Right ventricular systolic function is at the lower limits of normal.
5. Indexed left atrial volume is severely abnormal (>48 ml/m2).
6. Severely dilated right atrium.
7. Mild mitral valve regurgitation.
8. Mild tricuspid regurgitation. Estimated pulmonary artery pressure of 39 mmHg assuming a right atrial pressure of 3 mmHg.
9. Compared to a prior transthoracic echocardiogram study from 01/25/24 There is no significant change.
Acute on chronic HFpEF:
-with B/L pleural effusions
-proBNP 2019
-was on IV lasix, now transitioned to PO Lasix
-daily wts, I/Os
-cont BB
-echo above, unchanged from prior
-s/p Dx/Tx R thoracentesis for 1550cc transudative fluid
-cards following
Small R-sided PTX:
-5 to 10%, no mediastinal shift
-repeat CXR without mention of PTX
-now weaned off O2
-pulm following
Small nondisplaced fracture involving the medial right clavicle:
-due to mechanical fall (traumatic)
-RUE sling
-PT
-pain control
Other problems:
Persistent atrial fibrillation: cont BB/Eliquis
h/o CVA: Cont ASA/statin/Eliquis
Memory impairment: cont Namenda
CAD s/p CABG: cont ASA/Plavix/BB
h/o PVCs
Essential HTN: cont amlodipine/atenolol
HLD: on Repatha outpt Q2Wk
COPD, not acute exacerbation
GERD
Gout
PENNIE
Obesity due to excess calories
Glaucoma
B12 deficiency: cont B12
Anxiety/depression
Osteoarthritis
FULL/Eliquis
--- NOTE | 2024-11-24 08:10 | W.PN.CARDCBS ---
Today's Communication / Plan
-
Continue to improve. s/p R thoracentesis for 1550cc peng-colored fluid on 11/23.
Wt down to 203. Transition to oral lasix 40 mg daily
Echo reviewed and EF is preserveed.
Cont atenolol and Eliquis. Remains in rate controlled A-fib
Blood pressure is overall stable.
Continue medical therapy for CAD
Will arrange outpt follow up.
Please recall if needed.
Impression / Plan
-
.
Primary Beauty Operator: Dr. Maynard
Assessment:
Presentation 11/21/2024 with fall
R clavicle fracture
R apical PTX
B/L pleural effusions
s/p R thoracentesis for 1550cc peng-colored fluid,
Suspected acute on chronic HFpEF
Persistent atrial fibrillation
Chronic anticoagulation with Eliquis
History of CVA 2019, 2022
CAD status post CABG 1999 at [facility], RON to unknown vessel 2009
Hypertension
Hyperlipidemia
Anxiety/depression
PENNIE on CPAP
History of statin intolerance maintained on chronic Repatha
Suspected prior asbestos exposure
Urinary incontinence, history of TURP 2021
Bilateral knee replacements
Memory impairment, on memantine
ECHO 01/25/24: EF 55 to 60%, RV mildly dilated and moderately hypokinetic, mild increase in RV systolic pressure 41 mmHg, moderate biatrial enlargement
ECHO 11/22/24:
1. Normal left ventricular size, wall thickness and systolic function. No regional wall motion abnormalities are seen.
2. Ejection fraction is 50-55% by visual assesment.
3. Right ventricular cavity size cavity is mildly dilated.
4. Right ventricular systolic function is at the lower limits of normal.
5. Indexed left atrial volume is severely abnormal (>48 ml/m2).
6. Severely dilated right atrium.
7. Mild mitral valve regurgitation.
8. Mild tricuspid regurgitation. Estimated pulmonary artery pressure of 39 mmHg assuming a right atrial pressure of 3 mmHg.
9. Compared to a prior transthoracic echocardiogram study from 01/25/24 There is no significant change.
Plan:
Continue to improve. s/p R thoracentesis for 1550cc peng-colored fluid on 11/23.
Wt down to 203. Transition to oral lasix 40 mg daily
Echo reviewed and EF is preserveed.
Cont atenolol and Eliquis. Remains in rate controlled A-fib
Blood pressure is overall stable.
Continue medical therapy for CAD
Will arrange outpt follow up.
Please recall if needed.
Progress Note - Beauty Operator
Subjective
Date of Service: November 24, 2024
Pt seen and examined. No complaints. No chest pain or shortness of breath.
Objective
Labs:
11/24/24 07:08
Labs
Hgb 14.5 g/dL (13.0-18.0) 11/24/24 07:08
Hct 43.0 % (39.0-52.0) 11/24/24 07:08
Plt Count 145 10^3/uL (130-400) 11/24/24 07:08
PT 17.4 Sec (11.4-14.6) H 11/21/24 11:29
INR 1.37 11/21/24 11:29
Sodium 137 mmol/L (135-145) 11/23/24 06:50
Potassium 4.0 mmol/L (3.5-5.1) 11/23/24 06:50
BUN 17 mg/dl (9-20) 11/23/24 06:50
Creatinine 0.6 mg/dL (0.7-1.3) L 11/23/24 06:50
Glucose 97 mg/dl (70-99) 11/23/24 06:50
Vital Signs and I&O:
Vital Signs
Temp Pulse Resp BP Pulse Ox
97.8 F 81 17 122/73 95
11/24/24 07:49 11/24/24 07:49 11/24/24 07:49 11/24/24 07:49 11/24/24 07:49
Vital Signs
Temp Pulse Resp BP Pulse Ox
97.8 F 81 17 122/73 95
11/24/24 07:49 11/24/24 07:49 11/24/24 07:49 11/24/24 07:49 11/24/24 07:49
Intake & Output
11/22/24 11/23/24 11/24/24 11/25/24
06:59 06:59 06:59 06:59
Intake Total 1080 / 1080 810 / 810 1170 / 1170
Output Total 1275 / 1275 1350 / 1350 2024
Balance -195 / -195 -540 / -540 -855 / -855
Physical Exam
Physical Exam
General: No acute distress, AAOX3
Neck: Negative JVD
Heart: Regular, Negative S3 positive S1/S2, Negative S4, No murmur
Lungs: CTA b/l, negative wheezes/rales/rhonchi
Abd: Positive BS, NT/ND, neg rebound/rigidity/guarding
Ext: Negative cyanosis/clubbing/edema
Neuro: nonfocal
[2024-11-24] MEDS: NAMENDA 5 MG PO ×2 (09:23→22:02)
[2024-11-24] MEDS: ELIQUIS 5 MG PO ×2 (09:24→22:01)
[2024-11-24] MEDS: VITAMIN B-12 1000 MCG PO (09:24)
[2024-11-24] MEDS: PLAVIX 75 MG PO (09:24)
[2024-11-24] MEDS: TENORMIN 25 MG PO (09:24)
[2024-11-24] MEDS: NORVASC 10 MG PO (09:27)
[2024-11-24] MEDS: DESENEX/MITRAZOL/ZEASORB 1 APPLIC TOPICAL ×2 (09:33→22:02)
[2024-11-24] MEDS: LASIX 40 MG IV (09:40)
[2024-11-24 09:50] LABS: ALT (SGPT) 13 U/L (0-50); AST (SGOT) 21 U/L (17-59); Albumin 3.1 g/dl (3.5-5.0); Alkaline Phosphatase 122 U/L (38-126); Blood Urea Nitrogen 18 mg/dl (9-20); Calcium 10.3 mg/dl (8.4-10.2); Carbon Dioxide 27 mmol/L (22-30); Chloride 105 mmol/L (98-107); Estimated Creatinine Clearance 108 ml/min; Glucose 103 mg/dl (70-99); Magnesium 2.0 mg/dl (1.6-2.3); Potassium 4.2 mmol/L (3.5-5.1); Sodium 136 mmol/L (135-145); Total Protein 6.1 g/dl (6.3-8.2); eGFR > 60.00
[2024-11-24 15:27] VITALS: BP 123/68
--- NOTE | 2024-11-24 15:44 | PTCARENOTE ---
pt c/o right shoulder pain this am, received PRN dose of Tylenol with some relief, sat oob for breakfast. tolerating diet, transferring with assist x2 with rolling walker, right shoulder immobilized in sling. condom catheter fell off penis and not
replaced, as there is slit on shaft of penis. Calazime ointment applied, vss, will continue to monitor.
--- NOTE | 2024-11-24 15:59 | CM ---
Patient seen at bedside
states brother has not come in yet with copy of POA
discussed referrals
Referrals entered in [facility]
PLAN: SNF, pending bed availability when stable
[2024-11-24 23:30] VITALS: BP 113/76
[2024-11-24 23:56] VITALS: BP 113/76
--- NOTE | 2024-11-25 07:13 | W.PN.HOSP.TC ---
Today's Communication/Plan
-
See A/P
Assessment / Plan
Assessment / Plan
Assessment/plan
#Nondisplaced right medial clavicular fracture secondary to mechanical fall
-Cervical spine CT�there is a suggestion of small nondisplaced fracture involving the medial right clavicle
-CR ribs�no radiographic evidence for acute posterior rib fracture. Although subtotal deformity of the right anterolateral seventh rib, appearance most suggestive of an old fracture, but acute fracture is also possible.
-Head CT negative
-Right upper extremity sling
-PT
-Pain control
#Acute on chronic HFpEF
#Bilateral pleural effusion s/p right thoracocentesis 11/23
-CXR�moderate right and small left pleural effusions
-proBNP 2019 on presentation
-Cardiology input appreciated
-s/p IV Lasix 40 mg BID, transitioned to PO 40mg Lasix daily
-I's and O's, daily weights
-Pleural fluid s/p right thoracocentesis 1550 cc analysis indicative of transudative pleural effusion
-Echocardiogram 11/23�normal left ventricular size, wall thickness and systolic function. No regional wall abnormalities are seen. Ejection fraction is 50-55% by visual assessment
-Per cards, not a candidate for SGLT2 given issues with urinary continence
#Acute hypoxic respiratory sufficiency secondary to below
#Pneumothorax secondary to trauma�right side 5-10%
-CT chest 11/21 indicative of small right-sided pneumothorax, estimated volume of 5-10%
-CXR 11/23/2024�no pneumothorax, 11/22�no pneumothorax,
-O2 weaned off
-Pulmonology signed off as s/p thoracocentesis imaging showed no obvious pneumothorax
#Persistent atrial fibrillation
-Continue rate control with atenolol
-Anticoagulation with Eliquis
#History of CVA
-Continue Plavix
#CAD s/p CABG 1999, stents 2009
-Denies acute chest pain
-Continue Plavix
#Memory impairment
-Continue memantine
#COPD
-Not in acute exacerbation
#Essential hypertension
-Continue amlodipine, atenolol
#Hyperlipidemia
-on Repatha
#GERD
#Gout
#Obstructive sleep apnea not on CPAP
#Glaucoma
#B12 deficiency-continue B12 supplementation
#Anxiety/depression
#Stage I sacral pressure injury POA
CODE STATUS full code
DVT prophylaxis Eliquis
Anticipated Discharge: Within 24 hours
Subjective/Interval History
-
Date of Service: November 25, 2024
Objective Data
-
Labs:
Laboratory Results
11/25/24
06:00
WBC Pending
Hgb Pending
Hct Pending
Plt Count Pending
Sodium Pending
Potassium Pending
Chloride Pending
Carbon Dioxide Pending
BUN Pending
Creatinine Pending
Glucose Pending
Calcium Pending
Total Bilirubin Pending
AST Pending
ALT Pending
Alkaline Phosphatase Pending
Vital Signs:
Vital Signs
Temp Pulse Resp BP Pulse Ox
98.7 F 80 20 113/76 94
11/24/24 23:30 11/24/24 23:30 11/24/24 23:30 11/24/24 23:30 11/24/24 23:30
I&O
11/24/24 11/25/24 11/26/24
06:59 06:59 06:59
Intake Total 1170 / 1170 960 / 960
Output Total 2024 400 / 400
Balance -855 / -855 560 / 560
Review of Systems
-
All other systems: Reviewed and negative (Except as documented)
Physical Exam
-
General: Well Developed and No Apparent Distress
Respiratory: Clear to Auscultation
Cardiac: Regular Rhythm, S1/S2 and Murmur
GI: Soft, Nontender and Nondistended
Musculoskeletal: No Edema
Skin: Warm and Dry
Neuro: Awake, Alert, Oriented and AO x 3
Psych: Calm
[2024-11-25 07:15] VITALS: BP 124/68
--- NOTE | 2024-11-25 08:33 | W.PN.UPDATE ---
Update Note
Progress Note Update
I saw and evaluated the patient. I reviewed the resident�s note and agree with findings and plan as documented in the resident�s note.
No new complaints.
Gen: remains NAD, Awake and alert
Eyes: EOMI, PERRLA, no scleral icterus.
Neck: supple.
CV: irreg/irreg, +S1/S2, no m/r/g.
Resp: remains CTAB anteriorly, no rales, wheezes, or rhonchi.
Abd: +BS, soft, NT, ND
Skin: No rashes. 1+ B/L LE edema
Neuro: remains CN 2-12 intact, non-focal.
Psych: Normal mood and affect.
CT brain: No evidence of acute intracranial abnormality.
CT C-spine: No evidence for acute fracture or dislocation involving the cervical spine. There is suggestion of a small nondisplaced fracture involving the medial right clavicle. Small right apical pneumothorax is present. There is also suggestion of
right pleural effusion posteriorly within the visualized upper chest.
CT chest: Small R-sided PTX, estimated volume of 5-10%. No evidence for mediastinal shift. Moderate right pleural effusion with small to moderate left pleural effusion. Adjacent compressive atelectasis within the posterior lungs. Cardiomegaly. On CT
evaluation, no convincing evidence for interstitial pulmonary edema pattern. Fracture involving the medial right clavicle, nondisplaced. There is no evidence for sternoclavicular joint dislocation. Cystic mass within the left upper abdomen, inferior
to the spleen and at the posterior margin of the left kidney. This is likely a large left kidney cyst, with a large left kidney cyst identified on previous renal ultrasound of September 16, 2021. This presumed the left kidney cyst is incompletely
included on the [id number] of this exam. Not mentioned above, there is also an incompletely visualized cyst arising in the upper pole of the right kidney.
CXR 11/22/24: Moderate right and small left pleural effusions. Stable. Opacification of the right lower lobe concerning for pneumonia. Some of this may be due a layering pleural effusion. New. Moderate cardiomegaly. Progressed.
CXR 11/23/24: No pneumothorax post right thoracentesis.
Echo:
1. Normal left ventricular size, wall thickness and systolic function. No regional wall motion abnormalities are seen.
2. Ejection fraction is 50-55% by visual assessment.
3. Right ventricular cavity size cavity is mildly dilated.
4. Right ventricular systolic function is at the lower limits of normal.
5. Indexed left atrial volume is severely abnormal (>48 ml/m2).
6. Severely dilated right atrium.
7. Mild mitral valve regurgitation.
8. Mild tricuspid regurgitation. Estimated pulmonary artery pressure of 39 mmHg assuming a right atrial pressure of 3 mmHg.
9. Compared to a prior transthoracic echocardiogram study from 01/25/24 There is no significant change.
Acute on chronic HFpEF:
-with B/L pleural effusions
-proBNP 2019
-was on IV lasix, now transitioned to PO Lasix
-daily wts, I/Os
-cont BB
-echo above, unchanged from prior
-s/p Dx/Tx R thoracentesis for 1550cc transudative fluid
-cards following
Small R-sided PTX:
-5 to 10%, no mediastinal shift
-repeat CXR without mention of PTX
-now weaned off O2
-pulm following
Small nondisplaced fracture involving the medial right clavicle:
-due to mechanical fall (traumatic)
-RUE sling
-PT
-pain control
-outpt ortho follow up
Other problems:
Persistent atrial fibrillation: cont BB/Eliquis
h/o CVA: Cont ASA/statin/Eliquis
Memory impairment: cont Namenda
CAD s/p CABG: cont ASA/Plavix/BB
h/o PVCs
Essential HTN: cont amlodipine/atenolol
HLD: on Repatha outpt Q2Wk
COPD, not acute exacerbation
GERD
Gout
PENNIE
Obesity due to excess calories
Glaucoma
B12 deficiency: cont B12
Anxiety/depression
Osteoarthritis
FULL/Eliquis
Remains medically cleared for d/c since 11/24/24. Case management aware.
[2024-11-25] MEDS: NAMENDA 5 MG PO ×2 (08:37→21:04)
[2024-11-25] MEDS: PLAVIX 75 MG PO (08:38)
[2024-11-25] MEDS: VITAMIN B-12 1000 MCG PO (08:38)
[2024-11-25] MEDS: NORVASC 10 MG PO (08:38)
[2024-11-25] MEDS: ELIQUIS 5 MG PO ×2 (08:39→21:04)
[2024-11-25] MEDS: LASIX 40 MG PO (08:39)
[2024-11-25] MEDS: TENORMIN 25 MG PO (08:39)
[2024-11-25] MEDS: DESENEX/MITRAZOL/ZEASORB 1 APPLIC TOPICAL ×2 (08:40→21:04)
[2024-11-25 08:55] LABS: Hematocrit 42.8 % (39.0-52.0); Hemoglobin 14.5 g/dL (13.0-18.0); Mean Corp Hgb Conc. 33.9 g/dL (33.0-37.0); Mean Corpuscular Volume 91.1 fL (80.0-94.0); Nucleated Red Blood Cells % 0 % (-); Platelet Count 154 10^3/uL (130-400); Red Cell Dist. Width 12.0 % (11.5-14.5)
[2024-11-25 09:20] LABS: ALT (SGPT) 12 U/L (0-50); AST (SGOT) 20 U/L (17-59); Albumin 3.0 g/dl (3.5-5.0); Alkaline Phosphatase 117 U/L (38-126); Blood Urea Nitrogen 20 mg/dl (9-20); Calcium 9.9 mg/dl (8.4-10.2); Carbon Dioxide 27 mmol/L (22-30); Chloride 106 mmol/L (98-107); Estimated Creatinine Clearance 97 ml/min; Glucose 100 mg/dl (70-99); Magnesium 1.9 mg/dl (1.6-2.3); Potassium 4.0 mmol/L (3.5-5.1); Sodium 136 mmol/L (135-145); Total Protein 5.9 g/dl (6.3-8.2); eGFR > 60.00
[2024-11-25 15:25] VITALS: BP 113/61
[2024-11-25 23:05] VITALS: BP 132/65
[2024-11-26 06:00] VITALS: BMI 29.1
[2024-11-26 07:00] VITALS: BP 128/61
[2024-11-26 07:11] LABS: Hematocrit 42.8 % (39.0-52.0); Hemoglobin 14.5 g/dL (13.0-18.0); Mean Corp Hgb Conc. 33.9 g/dL (33.0-37.0); Mean Corpuscular Volume 89.5 fL (80.0-94.0); Nucleated Red Blood Cells % 0 % (-); Platelet Count 170 10^3/uL (130-400); Red Cell Dist. Width 12.0 % (11.5-14.5)
[2024-11-26 07:36] LABS: ALT (SGPT) 12 U/L (0-50); AST (SGOT) 22 U/L (17-59); Albumin 3.0 g/dl (3.5-5.0); Alkaline Phosphatase 117 U/L (38-126); Blood Urea Nitrogen 21 mg/dl (9-20); Calcium 9.9 mg/dl (8.4-10.2); Carbon Dioxide 27 mmol/L (22-30); Chloride 104 mmol/L (98-107); Estimated Creatinine Clearance 97 ml/min; Glucose 100 mg/dl (70-99); Magnesium 2.0 mg/dl (1.6-2.3); Potassium 3.9 mmol/L (3.5-5.1); Sodium 135 mmol/L (135-145); Total Protein 5.9 g/dl (6.3-8.2); eGFR > 60.00
[2024-11-26] MEDS: LASIX 40 MG PO (08:24)
[2024-11-26] MEDS: VITAMIN B-12 1000 MCG PO (08:25)
[2024-11-26] MEDS: PLAVIX 75 MG PO (08:25)
[2024-11-26] MEDS: TENORMIN 25 MG PO (08:25)
[2024-11-26] MEDS: NORVASC 10 MG PO (08:25)
[2024-11-26] MEDS: ELIQUIS 5 MG PO ×2 (08:25→21:58)
[2024-11-26] MEDS: NAMENDA 5 MG PO ×2 (08:25→21:58)
[2024-11-26] MEDS: DESENEX/MITRAZOL/ZEASORB 1 APPLIC TOPICAL ×2 (08:27→21:58)
[2024-11-26] MEDS: TYLENOL 650 MG PO (12:00)
[2024-11-26 12:59] VITALS: BP 117/68; PULSE 63; O2SAT 98
[2024-11-26 13:00] VITALS: BP 117/68; PULSE 62; O2SAT 95
--- NOTE | 2024-11-26 13:53 | W.PN.HOSP.TC ---
Today's Communication/Plan
-
medically stable for discharge pending placement; CM aware.
Assessment / Plan
Assessment / Plan
ECHO 11/22/24:
1. Normal left ventricular size, wall thickness and systolic function. No regional wall motion abnormalities are seen.
2. Ejection fraction is 50-55% by visual assesment.
3. Right ventricular cavity size cavity is mildly dilated.
4. Right ventricular systolic function is at the lower limits of normal.
5. Indexed left atrial volume is severely abnormal (>48 ml/m2).
6. Severely dilated right atrium.
7. Mild mitral valve regurgitation.
8. Mild tricuspid regurgitation. Estimated pulmonary artery pressure of 39 mmHg assuming a right atrial pressure of 3 mmHg.
9. Compared to a prior transthoracic echocardiogram study from 01/25/24 There is no significant change.
Assessment:
Acute on chronic HFpEF:
- with B/L pleural effusions
- proBNP 2019
- s/p IV lasix course, now transitioned to PO Lasix
- continue BB. SGLT2 inhibitor considered but history of urinary incontinence.
- echo above, unchanged from prior
- s/p Dx/Tx R thoracentesis 11/23 for 1550cc transudative fluid
- cards signed off; OP f/u.
Small R-sided PTX:
- 5 to 10%, no mediastinal shift
- repeat CXR without mention of PTX
- now weaned off O2
- pulm signed off
Acute hypoxic respiratory insufficiency - resolved
Mechanical fall with neck strain and right clavicular nondisplaced displaced fracture
- due to mechanical fall (traumatic)
- RUE sling
- PT
- pain control
- outpt ortho follow up
Persistent atrial fibrillation: cont BB/Eliquis
h/o CVA: Cont ASA/statin/Eliquis
Memory impairment: cont Namenda
CAD s/p CABG: cont ASA/Plavix/BB
h/o PVCs
Essential HTN: cont amlodipine/atenolol
HLD: on Repatha outpt Q2Wk
COPD, not acute exacerbation
GERD
Gout
PENNIE
Obesity due to excess calories
Glaucoma
B12 deficiency: cont B12
Anxiety/depression
Osteoarthritis
Stage I sacral pressure injury POA
DVT ppx: Eliquis
Code: Full
Anticipated Discharge: 24 - 48 hours
Subjective/Interval History
-
Date of Service: November 26, 2024
resting comfortably, no complaints at present
Objective Data
-
Labs:
Laboratory Results
11/26/24
06:52
WBC 6.2
Hgb 14.5
Hct 42.8
Plt Count 170
Sodium 135
Potassium 3.9
Chloride 104
Carbon Dioxide 27
BUN 21 H
Creatinine 0.5 L
Glucose 100 H
Calcium 9.9
Total Bilirubin 2.2 H
AST 22
ALT 12
Alkaline Phosphatase 117
Vital Signs:
Vital Signs
Temp Pulse Resp BP Pulse Ox
98.3 F 78 16 128/61 95
11/26/24 07:00 11/26/24 08:24 11/26/24 07:00 11/26/24 08:24 11/26/24 10:40
I&O
11/25/24 11/26/24 11/27/24
06:59 06:59 06:59
Intake Total 960 / 960 920 / 920
Output Total 400 / 400
Balance 560 / 560 920 / 920
Physical Exam
-
General: No Apparent Distress
HEENT: Normocephalic and Atraumatic
Respiratory: Clear to Auscultation; Negative Wheezes or Rales
Cardiac: S1/S2 and Irregular Rhythm
GI: Soft
Musculoskeletal: Edema, Right Lower Extrem and Edema, Left Lower Extrem
Neuro: AO x 3
Psych: Calm
Data Reviewed
-
Total Time Spent with Patient (in minutes): 45
Labs: Labs Reviewed by me
--- NOTE | 2024-11-26 14:12 | CM ---
Patient seen at bedside
Reviewed accepting SNF-patient preferred [facility]
spoke with Monica liaison - bed available tomorrow
IMM explained & signed. In chart
PLAN: [facility] 11/27
REPORT #: [phone]
FAX #: [phone]
transportation forms on chart
[2024-11-26 15:00] VITALS: BP 111/59
[2024-11-26 23:19] VITALS: BP 126/66
[2024-11-27] MEDS: TYLENOL 650 MG PO (05:44)
[2024-11-27 08:09] VITALS: BP 133/61
[2024-11-27] MEDS: DESENEX/MITRAZOL/ZEASORB 1 APPLIC TOPICAL (08:18)
[2024-11-27] MEDS: VITAMIN B-12 1000 MCG PO (08:19)
[2024-11-27] MEDS: NAMENDA 5 MG PO (08:19)
[2024-11-27] MEDS: ELIQUIS 5 MG PO (08:19)
[2024-11-27] MEDS: PLAVIX 75 MG PO (08:19)
[2024-11-27] MEDS: TENORMIN 25 MG PO (08:20)
[2024-11-27] MEDS: LASIX 40 MG PO (08:20)
[2024-11-27] MEDS: NORVASC 10 MG PO (08:20)
--- NOTE | 2024-11-27 12:09 | CM ---
Addendum entered by Joyce Pagan RN 11/27/24 16:25:
Pt brother Jerson called back he agrees with discharge and will bring CPAP to [facility] tomorrow Monica at [facility] aware.
Original Note:
MD entered order for discharge.
Monica at [facility] accepted patient today
LM with brother Aba [phone] of dc to [facility].
Medical nec form on chart Ambulance set up
[facility]
REPORT #: [phone]
FAX #: [phone]
PLAn to [facility] today
[2024-11-27 12:24] VITALS: BP 110/65; PULSE 59; O2SAT 95
--- NOTE | 2024-11-27 12:35 | W.PN.HOSP.TC ---
Today's Communication/Plan
-
dc to SNF today
Assessment / Plan
Assessment / Plan
ECHO 11/22/24:
1. Normal left ventricular size, wall thickness and systolic function. No regional wall motion abnormalities are seen.
2. Ejection fraction is 50-55% by visual assesment.
3. Right ventricular cavity size cavity is mildly dilated.
4. Right ventricular systolic function is at the lower limits of normal.
5. Indexed left atrial volume is severely abnormal (>48 ml/m2).
6. Severely dilated right atrium.
7. Mild mitral valve regurgitation.
8. Mild tricuspid regurgitation. Estimated pulmonary artery pressure of 39 mmHg assuming a right atrial pressure of 3 mmHg.
9. Compared to a prior transthoracic echocardiogram study from 01/25/24 There is no significant change.
Assessment:
Acute on chronic HFpEF:
- with B/L pleural effusions
- proBNP 2019
- s/p IV lasix course, now transitioned to PO Lasix
- continue BB. SGLT2 inhibitor considered but history of urinary incontinence.
- echo above, unchanged from prior
- s/p Dx/Tx R thoracentesis 11/23 for 1550cc transudative fluid
- cards signed off; OP f/u.
Small R-sided PTX:
- 5 to 10%, no mediastinal shift
- repeat CXR without mention of PTX
- now weaned off O2
- pulm signed off
Acute hypoxic respiratory insufficiency - resolved
Mechanical fall with neck strain and right clavicular nondisplaced displaced fracture
- due to mechanical fall (traumatic)
- RUE sling
- PT
- pain control
- outpt ortho follow up
Persistent atrial fibrillation: cont BB/Eliquis
h/o CVA: Cont ASA/statin/Eliquis
Memory impairment: cont Namenda
CAD s/p CABG: cont ASA/Plavix/BB
h/o PVCs
Essential HTN: cont amlodipine/atenolol
HLD: on Repatha outpt Q2Wk
COPD, not acute exacerbation
GERD
Gout
PENNIE
Obesity due to excess calories
Glaucoma
B12 deficiency: cont B12
Anxiety/depression
Osteoarthritis
Stage I sacral pressure injury POA
DVT ppx: Eliquis
Code: Full
More than 30 minutes spent in discharge including
Final examination of the patient
Summarizing hospital stay
Instructions for continuing care to all relevant caregivers
Preparation of discharge records, prescriptions, and referral forms
Total time spent (in minutes): 41
Anticipated Discharge: Today
Subjective/Interval History
-
Date of Service: November 27, 2024
resting comfortably, no complaints at present
Objective Data
-
Vital Signs:
Vital Signs
Temp Pulse Resp BP Pulse Ox
98.3 F 71 16 133/65 100
11/27/24 08:09 11/27/24 08:20 11/27/24 08:09 11/27/24 08:20 11/27/24 08:09
I&O
11/26/24 11/27/24 11/28/24
06:59 06:59 06:59
Intake Total 920 / 920 1000 / 1000
Balance 920 / 920 1000 / 1000
Physical Exam
-
General: No Apparent Distress
HEENT: Normocephalic and Atraumatic
Respiratory: Negative Wheezes
Cardiac: Regular Rhythm and S1/S2
GI: Soft
Musculoskeletal: No Edema
Neuro: AO x 3
Psych: Calm
Data Reviewed
-
Total Time Spent with Patient (in minutes): 41
Labs: Labs Reviewed by me
--- NOTE | 2024-11-27 12:39 | W.DS.TRANS ---
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
-
Discharge Instructions:
Discharge Diagnosis/Procedures acute CHF, hypoxia, right clavicular
nondisplaced displaced fracture, pneumothorax (
Resolved)
Diet 2 Gram Sodium,Low Cholesterol
Activity As tolerated
Other Services PT,OT
Instructions:
Stand-Alone Forms:
Changes to Home Medications: No
Discharge Medications:
DC Medications w/original date entered in [facility]
amlodipine 10 mg tablet 10 mg PO DAILY #30 tabs 03/30/21
cyanocobalamin (vitamin B-12) 1,000 mcg tablet 1,000 mcg PO DAILY 03/30/21
atenolol 25 mg tablet 25 mg PO DAILY Heart Failure 01/18/22
evolocumab 140 mg/mL subcutaneous pen injector (Repatha SureClick) 140 mg SC Q2W High Cholesterol 12/16/22
apixaban 5 mg tablet (Eliquis) 5 mg PO BID #60 tabs 12/18/22
clopidogrel 75 mg tablet 75 mg PO DAILY Heart Disease/Condition 11/21/24
furosemide 40 mg tablet 40 mg PO DAILY Fluid Retention/Swelling 11/21/24
memantine 5 mg tablet 5 mg PO BID Neurological Condition 11/21/24
potassium chloride 10 mEq capsule,extended release 10 meq PO DAILY Supplement 11/21/24
Home Medication Changes
Pending Results: No
Total time spent discharging patient (in min): 41
[2024-11-27 12:52] VITALS: BP 131/69
== END 2024-11-27 13:51 | DRG 199 ==
LOC: 3 WEST ACU 14:07
PROVIDERS: Clinical Nurse Specialist Family Health; Internal Medicine; Radiology Vascular & Interventional Radiology; ADMITTING PHYSICIAN Student in an Organized Health Care Education/Training Program; ATTENDING PHYSICIAN Internal Medicine; CONSULT PHYSICIAN Internal Medicine Critical Care Medicine; CONSULT PHYSICIAN Nuclear Medicine Nuclear Cardiology; EMERGENCY PHYSICIAN Student in an Organized Health Care Education/Training Program; FAMILY PHYSICIAN Family Medicine
PROC: 0W993ZZ Drainage of Right Pleural Cavity, Percutaneous Approach (ICD-10-PCS; 2024-11-23)
DX: S27.0XXA Traumatic pneumothorax, initial encounter (principal); I50.33 Acute on chronic diastolic (congestive) heart failure; I48.19 Other persistent atrial fibrillation; J98.11 Atelectasis; I11.0 Hypertensive heart disease with heart failure; R09.02 Hypoxemia; W06.XXXA Fall from bed, initial encounter; S16.1XXA Strain of muscle, fascia and tendon at neck level, initial encounter; Z86.73 Personal history of transient ischemic attack (TIA), and cerebral infarction without residual deficits; Z79.82 Long term (current) use of aspirin; Z79.899 Other long term (current) drug therapy; Z79.01 Long term (current) use of anticoagulants; Z79.02 Long term (current) use of antithrombotics/antiplatelets; I25.10 Atherosclerotic heart disease of native coronary artery without angina pectoris; Z95.1 Presence of aortocoronary bypass graft; E78.00 Pure hypercholesterolemia, unspecified; J44.9 Chronic obstructive pulmonary disease, unspecified; K21.9 Gastro-esophageal reflux disease without esophagitis; G47.33 Obstructive sleep apnea (adult) (pediatric); E66.09 Other obesity due to excess calories; Z68.30 Body mass index [BMI] 30.0-30.9, adult; E53.8 Deficiency of other specified B group vitamins; F32.A Depression, unspecified; F41.9 Anxiety disorder, unspecified; L89.151 Pressure ulcer of sacral region, stage 1; Z96.653 Presence of artificial knee joint, bilateral; Z87.891 Personal history of nicotine dependence; Z80.3 Family history of malignant neoplasm of breast; Z81.1 Family history of alcohol abuse and dependence; Z91.048 Other nonmedicinal substance allergy status; Z88.5 Allergy status to narcotic agent; J61 Pneumoconiosis due to asbestos and other mineral fibers; S42.001A Fracture of unspecified part of right clavicle, initial encounter for closed fracture; Z77.090 Contact with and (suspected) exposure to asbestos; Z90.79 Acquired absence of other genital organ(s); Z99.81 Dependence on supplemental oxygen
CPT/HCPCS: 32555; 70450; 71045; 71046; 71101; 71250; 72125; 80053; 81003; 81015; 82945; 83615; 83735; 83880; 83986; 84157; 85025; 85610; 86850; 86900; 86901; 87015; 87070; 87086; 87088; 87186; 87205; 89051; 93005; 93306; 96374; 97116; 97162; 97167; 97530; 97535; 99285